=== PATIENT | male | born 1960 | race African-American/Black ===

== ENCOUNTER 2016-12-19 10:11 | Inpatient (IN) | payer OTHER, MEDICARE ==
[2016-12-19] MEDS ORDERED: DEXAMETHASONE 4 MG TABLET PO PRN (10:44)
[2016-12-19] MEDS ORDERED: RITUXIMAB IV PRN ×3 (11:00→12:00)
[2016-12-19] MEDS ORDERED: NORMAL SALINE IV PRN ×3 (11:00→12:00)
[2016-12-19 11:36] LABS: HEMATOCRIT 16.8 % (37.9-51.0); MEAN CORPUSCULAR HEMOGLOBIN 30.5 pg (27.0-33.4); MEAN CORPUSCULAR HGB CONC 33.5 g/dL (32.0-36.0); MEAN CORPUSCULAR VOLUME 91 fl (80-97); RED BLOOD COUNT 1.85 10^6/uL (4.35-5.55); RED CELL DISTRIBUTION WIDTH 23.1 % (11.5-14.0)
[2016-12-19 12:01] LABS: HEMOGLOBIN 5.6 g/dL (13.5-17.0)
[2016-12-19] MEDS: ACETAMINOPHEN 325 MG TABLET PO PRN ×2 (13:20→14:09)
[2016-12-19] MEDS: DIPHENHYDRAMINE HCL 50 MG/ML VIAL IV PRN ×2 (13:20→14:08)
--- NOTE | 2016-12-19 16:09 | XCELERA REPORT ---
[address] [address] Lower Extremity Venous Evaluation Name: LUC VICENTE Age: 56 yrs Gender: Male : 1960 Patient Status: Inpatient Patient Location: [id number] Study Date: 12/19/2016 01:50 PM Procedure: Color flow and duplex imaging bilaterally of the veins of the lower extremities as well as the Common Femoral veins. Reason For Study: SWELLING Ordering Physician: MCKENZIE GRACIA Performed By: Karishma Benedict Right Sided Venous Evaluation Difficult to visualize Femoral area due to large lymph nodes. Normal vessel filling wall to wall, compression and augmentation as well as Colour flow down to the infrageniculate veins. Left Sided Venous Evaluation Normal vessel filling wall to wall, compression and augmentation as well as Colour flow down to the infrageniculate veins. Interpretation Summary No duplex evidence of DVT or obstruction in the bilateral lower extremities. : MCKENZIE GRACIA > Russ Rosario
[2016-12-19] MEDS ORDERED: DIPHENHYDRAMINE HCL 50 MG/ML VIAL ONE (16:36)
[2016-12-19] MEDS ORDERED: FUROSEMIDE INJ/PF 20 MG/2 ML SDV ONE (16:59)
[2016-12-19] MEDS ORDERED: DEXAMETHASONE SOD PHOS INJ 10 MG/1 ML VIAL IV ONE (17:00)
[2016-12-19 18:16] LABS: WHITE BLOOD COUNT 3.9 10^3/uL (4.0-10.5)
[2016-12-19 18:32] LABS: HEMATOCRIT 23.9 % (37.9-51.0); HGB HCT DIFFERENCE 0.4; MEAN CORPUSCULAR HEMOGLOBIN 30.3 pg (27.0-33.4); MEAN CORPUSCULAR HGB CONC 33.6 g/dL (32.0-36.0); MEAN CORPUSCULAR VOLUME 90 fl (80-97); RED BLOOD COUNT 2.66 10^6/uL (4.35-5.55)
[2016-12-19 19:03] LABS: HEMOGLOBIN 8.1 g/dL (13.5-17.0)
--- NOTE | 2016-12-19 19:27 | PDOC H&P ---
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 Sun for admission due to severe anemia, fever, thrombocytopenia and persistent fatigue. Patient had bone marrow biopsy done by Dr Sun earlier today. There was concern due to his persistent fever, which has been related to his Lymphoma, generalized fatigue, bilateral leg swelling and exertional difficulty with breathing. Past Medical History Malignancy Medical History: Reports: Lymphoma GI Medical History: Reports: Other - Cholelithiasis Psychiatric Medical History: Reports: Depression Infectious Medical History: Reports: HIV, Other - HSV infection, Latent Lung TB Past Surgical History Past Surgical History: Reports: None Social History Smoking Status: Never Smoker Frequency of Alcohol Use: None Hx Recreational Drug Use: No Drugs: None Hx Prescription Drug Abuse: No Family History Parental Family History Reviewed: Yes Children Family History Reviewed: Yes Sibling(s) Family History Reviewed.: Yes Medication/Allergy Allergies/Adverse Reactions: No Known Allergies Allergy (Unverified 12/19/16 11:15) Review of Systems Constitutional: PRESENT: fatigue, fever(s), weakness. ABSENT: as per HPI, anorexia, chills, headache(s), night sweats, weight gain, weight loss, other Eyes: PRESENT: visual disturbances Ears: PRESENT: hearing changes Nose, Mouth, and Throat: PRESENT: sore throat. ABSENT: as per HPI, headache(s) , mouth pain, vertigo, other Cardiovascular: PRESENT: dyspnea on exertion, edema. ABSENT: as per HPI, chest pain, orthropnea, palpitations, other Respiratory: PRESENT: cough, dyspnea - with exertion, sputum - minimal Gastrointestinal: ABSENT: abdominal pain, constipation, diarrhea, hematemesis, hematochezia, nausea, vomiting Genitourinary: ABSENT: dysuria, hematuria Musculoskeletal: ABSENT: joint swelling Integumentary: ABSENT: rash, wounds Neurological: PRESENT: weakness - generalized. ABSENT: as per HPI, abnormal gait, abnormal movements, abnormal speech, confusion, convulsions, dizziness, focal weakness, frequent falls, lack of coordination, memory loss, numbness, paresthesias, restless legs, syncope, tingling, tremor(s), vertigo, other Psychiatric: ABSENT: anxiety, depression, homidical ideation, suicidal ideation Endocrine: ABSENT: cold intolerance, heat intolerance, menstrual abnormalities, polydipsia, polyuria Hematologic/Lymphatic: PRESENT: lymphadenopathy. ABSENT: as per HPI, easy bleeding, easy bruising, other Allergic/Immunologic: PRESENT: seasonal rhinorrhea Physical Exam Vital Signs: Temp Pulse Resp BP Pulse Ox 98.4 F 134 H 18 115/44 L 100 12/19/16 17:49 12/19/16 17:49 12/19/16 17:49 12/19/16 17:49 12/19/16 17:49 Intake & Output 12/18/16 12/19/16 12/20/16 06:59 06:59 06:59 Intake Total 900 Balance 900 Weight 88.18 kg General appearance: PRESENT: no acute distress, cooperative Head exam: PRESENT: atraumatic, normocephalic Eye exam: PRESENT: conjunctiva pink, EOMI, PERRLA. ABSENT: scleral icterus Ear exam: PRESENT: normal external ear exam Mouth exam: PRESENT: moist, tongue midline Teeth exam: ABSENT: dental caries, dental tenderness, edentulous, poor dentation , other Throat exam: ABSENT: post pharyngeal erythema, tonsillar erythema, tonsillar exudate, tonsillogmegaly, other Neck exam: PRESENT: lymphadenopathy - spotty in supraclavicular fossa Respiratory exam: PRESENT: clear to auscultation kulwant Cardiovascular exam: PRESENT: RRR. ABSENT: diastolic murmur, rubs, systolic murmur Vascular exam: PRESENT: normal capillary refill GI/Abdominal exam: PRESENT: normal bowel sounds, soft. ABSENT: distended, guarding, mass, organolmegaly, rebound, tenderness Rectal exam: PRESENT: deferred Extremities exam: PRESENT: pedal edema - bilateral, reported ongoing for aboput 1 month (since 11/20/16) Musculoskeletal exam: ABSENT: ambulatory, deformity, dislocation, full ROM, normal inspection, tenderness, other Neurological exam: PRESENT: alert, awake, oriented to person, oriented to place , oriented to time, oriented to situation, CN II-XII grossly intact. ABSENT: motor sensory deficit Psychiatric exam: PRESENT: appropriate affect, normal mood. ABSENT: homicidal ideation, suicidal ideation Skin exam: PRESENT: dry, intact, warm. ABSENT: cyanosis, rash Results Laboratory Results: 12/19/16 12/19/16 11:22 11:22 WBC 4.0 RBC 1.85 L Hgb 5.6 L Hct 16.8 L MCV 91 MCH 30.5 MCHC 33.5 RDW 23.1 H Plt Count 30 L* Blood Type A NEGATIVE Antibody Screen NEGATIVE Assessment & Plan - Diagnosis (1) Diffuse large B cell lymphoma Qualifiers: Lymphoma site: unspecified region Qualified Code(s): C83.30 - Diffuse large B-cell lymphoma, unspecified site Is this a current diagnosis for this admission?: YesPlan: See admitting physician orders. (2) Fever of unknown origin with HIV infection Is this a current diagnosis for this admission?: YesPlan: See admitting physician orders. (3) Pancytopenia Is this a current diagnosis for this admission?: YesPlan: See admitting physician orders. (4) Splenomegaly with HIV infection Is this a current diagnosis for this admission?: YesPlan: See admitting physician orders. (5) HIV (human immunodeficiency virus infection) Is this a current diagnosis for this admission?: YesPlan: See admitting physician orders. (6) HSV (herpes simplex virus) infection Is this a current diagnosis for this admission?: YesPlan: See admitting physician orders. (7) TB lung, latent Is this a current diagnosis for this admission?: YesPlan: See admitting physician orders. (8) Cholelithiasis Qualifiers: Biliary obstruction: without biliary obstruction Is this a current diagnosis for this admission?: YesPlan: See admitting physician orders. - Time Time Spent: 50 to 70 Minutes Medications reviewed and adjusted accordingly: Yes Anticipated discharge: Home with Homehealth Within: Other - Inpatient Certification Medical Necessity: Need Close Monitoring Due to Risk of Patient Decompensation, Risk of Complication if Not Cared For in Hospital, Other - Severe anemia with thrombocytopenia - Plan Summary Plan Summary: See admitting physician orders.
[2016-12-19 19:43] LABS: ALANINE AMINOTRANSFERASE 104 U/L (21-72); ALKALINE PHOSPHATASE 511 U/L (38-126); ANION GAP 13 (5-19); ASPARTATE AMINO TRANSFERASE 160 U/L (17-59); BILIRUBIN,TOTAL 3.9 mg/dL (0.2-1.3); BLOOD UREA NITROGEN 16 mg/dL (7-20); CALCIUM 7.5 mg/dL (8.4-10.2); CARBON DIOXIDE 24 mmol/L (22-30); CHLORIDE 97 mmol/L (98-107); CREATININE RESULT 1.12 mg/dL (0.52-1.25); GLUCOSE 118 mg/dL (75-110); POTASSIUM 4.4 mmol/L (3.6-5.0); SODIUM 133.6 mmol/L (137-145); TOTAL PROTEIN 6.4 g/dL (6.3-8.2)
[2016-12-19 19:55] LABS: BAND NEUTROPHILS % (MANUAL) 4 % (3-5); BASOPHILS % (MANUAL) 0 % (0-2); EOSINOPHILS % (MANUAL) 1 % (0-6); LYMPHOCYTES % (MANUAL) 18 % (13-45); TOTAL CELLS COUNTED 100
[2016-12-19 19:57] LABS: ANISOCYTOSIS 2+; HYPOCHROMASIA SLIGHT; POLYCHROMASIA 1+; TOXIC GRANULATION SLIGHT; TOXIC VACUOLATION PRESENT
[2016-12-19 20:55] LABS: PROTHROMBIN TIME 15.3 SEC (11.4-15.4)
[2016-12-19 20:56] LABS: PARTIAL THROMBOPLASTIN TIME 37.1 SEC (23.5-35.8)
[2016-12-20] MEDS: LANSOPRAZOLE 30 MG TAB.RAP.DR PO SCH (06:04)
[2016-12-20 06:35] LABS: ABSOLUTE EOSINOPHILS # (AUTO) 0.1 10^3/uL (0.0-0.6); ABSOLUTE LYMPHOCYTES (AUTO) 0.6 10^3/uL (0.5-4.7); ABSOLUTE MONOCYTES (AUTO) 0.1 10^3/uL (0.1-1.4); ABSOLUTE NEUT (AUTO) 2.5 10^3/uL (1.7-8.2); BASOPHILS % (AUTO) 0.5 % (0-2); HEMATOCRIT 21.2 % (37.9-51.0); HGB HCT DIFFERENCE 0.1; LYMPHOCYTES % (AUTO) 18.4 % (13-45); MEAN CORPUSCULAR HEMOGLOBIN 29.9 pg (27.0-33.4); MEAN CORPUSCULAR HGB CONC 33.4 g/dL (32.0-36.0); MEAN CORPUSCULAR VOLUME 89 fl (80-97); MONOCYTES % (AUTO) 3.6 % (3-13); RED BLOOD COUNT 2.37 10^6/uL (4.35-5.55); RED CELL DISTRIBUTION WIDTH 20.9 % (11.5-14.0); SEGMENTED NEUTROPHILS % (AUTO) 75.5 % (42-78); WHITE BLOOD COUNT 3.3 10^3/uL (4.0-10.5)
[2016-12-20 07:10] LABS: HEMOGLOBIN 7.1 g/dL (13.5-17.0)
--- NOTE | 2016-12-20 10:23 | RADIOLOGY REPORT (SQ) ---
EXAM DESCRIPTION: NM MUGA REST COMPLETED DATE/TIME: 12/20/2016 10:13 am REASON FOR STUDY: R/O HEART FAILURE COMPARISON: None. RADIONUCLIDE AND DOSE: 25.1 mCi of technetium PYP The route of agent administration: Intravenous TECHNIQUE: Following administration of the radionuclide, gated images of the heart are obtained in t hree projections. Left ventricular functional analysis performed. LIMITATIONS: None. FINDINGS: LEFT VENTRICULAR FUNCTION: EJECTION FRACTION: 60%. END-DIASTOLIC VOLUME: 78 cc. END-SYSTOLIC VOLUME: 30 cc. WALL MOTION: No focal wall motion abnormalities. OTHER: No other significant finding. IMPRESSION: NORMAL CARDIAC MUGA STUDY. NORMAL LEFT VENTRICULAR FUNCTION WITH VALUES ABOVE. TECHNICAL DOCUMENTATION: JOB ID: [id number] [employer]- All Rights Reserved
[2016-12-20 11:29] LABS: PATH REVIEW PATHOLOGIST REVIEWED
[2016-12-20] MEDS ORDERED: FUROSEMIDE INJ/PF 20 MG/2 ML SDV IV PRN (12:31)
[2016-12-20] MEDS ORDERED: ACETAMINOPHEN 325 MG TABLET PO PRN (12:34)
[2016-12-20] MEDS ORDERED: ALLOPURINOL 300 MG TABLET PO ONE (18:30)
--- NOTE | 2016-12-20 18:31 | PDOC PROGRESS REPORT ---
Subjective Progress Note for:: 12/20/16 Subjective:: Patient denied any chest pain or difficulty with breathing. So far no significant fever today. No nausea, vomiting,, abdominal pain or diarrhea. No abnormal bleeding. Physical Exam Vital Signs: Temp Pulse Resp BP Pulse Ox 98.1 F 100 16 114/62 99 12/20/16 17:44 12/20/16 17:44 12/20/16 17:44 12/20/16 17:44 12/20/16 17:44 Intake & Output 12/19/16 12/20/16 12/21/16 06:59 06:59 06:59 Intake Total 2577 645 Balance 2577 645 Weight 88.18 kg General appearance: PRESENT: no acute distress, cooperative Head exam: PRESENT: atraumatic, normocephalic Eye exam: PRESENT: conjunctiva pink, EOMI, PERRLA. ABSENT: scleral icterus Mouth exam: PRESENT: moist, tongue midline Neck exam: PRESENT: lymphadenopathy - scattered palpable adenopathy Respiratory exam: PRESENT: clear to auscultation kulwant Cardiovascular exam: PRESENT: RRR. ABSENT: diastolic murmur, rubs, systolic murmur GI/Abdominal exam: PRESENT: normal bowel sounds, soft. ABSENT: distended, guarding, mass, organolmegaly, rebound, tenderness Extremities exam: PRESENT: pedal edema Musculoskeletal exam: PRESENT: normal inspection Neurological exam: PRESENT: alert, awake, oriented to person, oriented to place , oriented to time, oriented to situation, CN II-XII grossly intact. ABSENT: motor sensory deficit Psychiatric exam: PRESENT: appropriate affect, normal mood. ABSENT: homicidal ideation, suicidal ideation Results Laboratory Results: 12/20/16 05:46 12/19/16 17:55 12/19/16 12/19/16 12/19/16 11:22 11:22 17:55 WBC 4.0 3.9 L RBC 1.85 L 2.66 L Hgb 5.6 L 8.1 L D Hct 16.8 L 23.9 L MCV 91 90 MCH 30.5 30.3 MCHC 33.5 33.6 RDW 23.1 H 20.0 H Plt Count 30 L* 13 L* D Seg Neutrophils % Not Reportable Lymphocytes % Not Reportable Monocytes % Not Reportable Eosinophils % Not Reportable Basophils % Not Reportable Absolute Neutrophils Not Reportable Absolute Lymphocytes Not Reportable Absolute Monocytes Not Reportable Absolute Eosinophils Not Reportable Absolute Basophils Not Reportable Sodium Potassium Chloride Carbon Dioxide Anion Gap BUN Creatinine Est GFR ( Amer) Est GFR (Non-Af Amer) Glucose Calcium Total Bilirubin AST ALT Alkaline Phosphatase Total Protein Albumin Blood Type A NEGATIVE Antibody Screen NEGATIVE 12/19/16 12/20/16 17:55 05:46 WBC 3.3 L RBC 2.37 L Hgb 7.1 L Hct 21.2 L MCV 89 MCH 29.9 MCHC 33.4 RDW 20.9 H Plt Count 17 L* Seg Neutrophils % 75.5 Lymphocytes % 18.4 Monocytes % 3.6 Eosinophils % 2.0 Basophils % 0.5 Absolute Neutrophils 2.5 Absolute Lymphocytes 0.6 Absolute Monocytes 0.1 Absolute Eosinophils 0.1 Absolute Basophils 0.0 Sodium 133.6 L Potassium 4.4 Chloride 97 L Carbon Dioxide 24 Anion Gap 13 BUN 16 Creatinine 1.12 Est GFR ( Amer) > 60 Est GFR (Non-Af Amer) > 60 Glucose 118 H Calcium 7.5 L Total Bilirubin 3.9 H AST 160 H ALT 104 H Alkaline Phosphatase 511 H Total Protein 6.4 Albumin 3.0 L Blood Type Antibody Screen Impressions: MUGA 12/20/16 11:00 IMPRESSION: NORMAL CARDIAC MUGA STUDY. NORMAL LEFT VENTRICULAR FUNCTION WITH VALUES ABOVE. Assessment & Plan - Diagnosis (1) Diffuse large B cell lymphoma Qualifiers: Lymphoma site: unspecified region Qualified Code(s): C83.30 - Diffuse large B-cell lymphoma, unspecified site Is this a current diagnosis for this admission?: Yes (2) Fever of unknown origin with HIV infection Is this a current diagnosis for this admission?: Yes (3) Pancytopenia Is this a current diagnosis for this admission?: Yes (4) Splenomegaly with HIV infection Is this a current diagnosis for this admission?: Yes (5) HIV (human immunodeficiency virus infection) Is this a current diagnosis for this admission?: Yes (6) HSV (herpes simplex virus) infection Is this a current diagnosis for this admission?: Yes (7) TB lung, latent Is this a current diagnosis for this admission?: Yes (8) Cholelithiasis Qualifiers: Biliary obstruction: without biliary obstruction Is this a current diagnosis for this admission?: Yes - Time Time Spent with patient: 25-34 minutes Medications reviewed and adjusted accordingly: Yes Anticipated discharge: Home with Homehealth Within: Other - Inpatient Certification Based on my medical assessment, after consideration of the patient's comorbidities, presenting symptoms, or acuity I expect that the services needed warrant INPATIENT care.: Yes I certify that my determination is in accordance with my understanding of Medicare's requirements for reasonable and necessary INPATIENT services [42 CFR 412.3e].: Yes Medical Necessity: Need Close Monitoring Due to Risk of Patient Decompensation, Risk of Complication if Not Cared For in Hospital Post Hospital Care: D/C Nursing Staff Development Coordinator Documentation - Plan Summary Plan Summary: Patient will receive 2 units PRBC. If platelet remain < 20,000 post transfusion will consider platelet transfusion in view of his splenomegaly and HIV status in the absence of active bleeding. Continue all other current medication management. I will start on Beneprotein 1 packet with meals tid. I reviewed and discussed his MUGA scan findings with LVEF at 60 %.
[2016-12-20 21:23] LABS: ABSOLUTE EOSINOPHILS # (AUTO) 0.1 10^3/uL (0.0-0.6); ABSOLUTE LYMPHOCYTES (AUTO) 0.5 10^3/uL (0.5-4.7); ABSOLUTE MONOCYTES (AUTO) 0.1 10^3/uL (0.1-1.4); ABSOLUTE NEUT (AUTO) 2.5 10^3/uL (1.7-8.2); BASOPHILS % (AUTO) 0.4 % (0-2); EOSINOPHILS % (AUTO) 3.1 % (0-6); HEMATOCRIT 29.8 % (37.9-51.0); HGB HCT DIFFERENCE -0.1; LYMPHOCYTES % (AUTO) 15.5 % (13-45); MEAN CORPUSCULAR HEMOGLOBIN 29.6 pg (27.0-33.4); MEAN CORPUSCULAR HGB CONC 33.1 g/dL (32.0-36.0); MEAN CORPUSCULAR VOLUME 90 fl (80-97); MONOCYTES % (AUTO) 2.6 % (3-13); RED BLOOD COUNT 3.33 10^6/uL (4.35-5.55); RED CELL DISTRIBUTION WIDTH 20.1 % (11.5-14.0); SEGMENTED NEUTROPHILS % (AUTO) 78.4 % (42-78); WHITE BLOOD COUNT 3.2 10^3/uL (4.0-10.5)
[2016-12-20 21:47] LABS: HEMOGLOBIN 9.9 g/dL (13.5-17.0)
[2016-12-21] MEDS: LANSOPRAZOLE 30 MG TAB.RAP.DR PO SCH (05:25)
[2016-12-21 06:38] LABS: ABSOLUTE EOSINOPHILS # (AUTO) 0.2 10^3/uL (0.0-0.6); ABSOLUTE MONOCYTES (AUTO) 0.1 10^3/uL (0.1-1.4); ABSOLUTE NEUT (AUTO) 2.1 10^3/uL (1.7-8.2); BASOPHILS % (AUTO) 0.4 % (0-2); EOSINOPHILS % (AUTO) 6.8 % (0-6); HEMATOCRIT 22.7 % (37.9-51.0); HGB HCT DIFFERENCE 0.1; LYMPHOCYTES % (AUTO) 29.2 % (13-45); MEAN CORPUSCULAR HEMOGLOBIN 29.6 pg (27.0-33.4); MEAN CORPUSCULAR HGB CONC 33.5 g/dL (32.0-36.0); MEAN CORPUSCULAR VOLUME 89 fl (80-97); MONOCYTES % (AUTO) 2.3 % (3-13); RED BLOOD COUNT 2.57 10^6/uL (4.35-5.55); RED CELL DISTRIBUTION WIDTH 20.4 % (11.5-14.0); SEGMENTED NEUTROPHILS % (AUTO) 61.3 % (42-78); WHITE BLOOD COUNT 3.5 10^3/uL (4.0-10.5)
[2016-12-21] MEDS ORDERED: ACETAMINOPHEN 325 MG TABLET PO PRN (06:58)
[2016-12-21 07:02] LABS: HEMOGLOBIN 7.6 g/dL (13.5-17.0)
--- NOTE | 2016-12-21 08:50 | PDOC PROGRESS REPORT ---
Subjective Progress Note for:: 12/21/16 Subjective:: Patient denied any profuse rectal bleeding, black or tarry stool. He did admit to sore around his rectum that leaves some bloody stain on his toilet paper with bowel movement. He denied any chest pain or difficulty with breathing. His reported fever has improved with administration of Tylenol. No nausea, vomiting, , abdominal pain or diarrhea. Physical Exam Vital Signs: Temp Pulse Resp BP Pulse Ox 100.3 F 121 H 19 105/50 L 100 12/21/16 08:00 12/21/16 08:00 12/21/16 08:00 12/21/16 08:00 12/21/16 08:00 Intake & Output 12/20/16 12/21/16 12/22/16 06:59 06:59 06:59 Intake Total 2577 2267 Balance 2577 2267 Weight 88.18 kg 88.3 kg Physical Exam: General appearance: PRESENT: no acute distress, cooperative Head exam: PRESENT: atraumatic, normocephalic Eye exam: PRESENT: conjunctiva pink, EOMI, PERRLA. ABSENT: scleral icterus Mouth exam: PRESENT: moist, tongue midline Neck exam: PRESENT: lymphadenopathy - scattered palpable adenopathy Respiratory exam: PRESENT: clear to auscultation kulwant Cardiovascular exam: PRESENT: RRR. ABSENT: diastolic murmur, rubs, systolic murmur GI/Abdominal exam: PRESENT: normal bowel sounds, soft. ABSENT: distended, guarding, mass, organomegaly, rebound, tenderness RECTAL: Deferred to GI international travel consultant evaluation in view of his thrombocytopenia. Extremities exam: PRESENT: pedal edema Musculoskeletal exam: PRESENT: normal inspection Neurological exam: PRESENT: alert, awake, oriented to person, oriented to place , oriented to time, oriented to situation, CN II-XII grossly intact. ABSENT: motor sensory deficit Psychiatric exam: PRESENT: appropriate affect, normal mood. ABSENT: homicidal ideation, suicidal ideation Results Laboratory Results: 12/21/16 05:03 12/19/16 17:55 12/19/16 12/19/16 12/20/16 11:22 11:22 20:55 WBC 4.0 3.2 L RBC 1.85 L 3.33 L Hgb 5.6 L 9.9 L D Hct 16.8 L 29.8 L MCV 91 90 MCH 30.5 29.6 MCHC 33.5 33.1 RDW 23.1 H 20.1 H Plt Count 30 L* 16 L* Seg Neutrophils % 78.4 H Lymphocytes % 15.5 Monocytes % 2.6 L Eosinophils % 3.1 Basophils % 0.4 Absolute Neutrophils 2.5 Absolute Lymphocytes 0.5 Absolute Monocytes 0.1 Absolute Eosinophils 0.1 Absolute Basophils 0.0 Blood Type A NEGATIVE Antibody Screen NEGATIVE 12/21/16 05:03 WBC 3.5 L RBC 2.57 L Hgb 7.6 L D Hct 22.7 L MCV 89 MCH 29.6 MCHC 33.5 RDW 20.4 H Plt Count 32 L Seg Neutrophils % 61.3 Lymphocytes % 29.2 Monocytes % 2.3 L Eosinophils % 6.8 H Basophils % 0.4 Absolute Neutrophils 2.1 Absolute Lymphocytes 1.0 Absolute Monocytes 0.1 Absolute Eosinophils 0.2 Absolute Basophils 0.0 Blood Type Antibody Screen Impressions: MUGA 12/20/16 11:00 IMPRESSION: NORMAL CARDIAC MUGA STUDY. NORMAL LEFT VENTRICULAR FUNCTION WITH VALUES ABOVE. Assessment & Plan - Diagnosis (1) Diffuse large B cell lymphoma Qualifiers: Lymphoma site: unspecified region Qualified Code(s): C83.30 - Diffuse large B-cell lymphoma, unspecified site Is this a current diagnosis for this admission?: Yes (2) Fever of unknown origin with HIV infection Is this a current diagnosis for this admission?: Yes (3) Pancytopenia Is this a current diagnosis for this admission?: Yes (4) Splenomegaly with HIV infection Is this a current diagnosis for this admission?: Yes (5) HIV (human immunodeficiency virus infection) Is this a current diagnosis for this admission?: Yes (6) HSV (herpes simplex virus) infection Is this a current diagnosis for this admission?: Yes (7) TB lung, latent Is this a current diagnosis for this admission?: Yes (8) Cholelithiasis Qualifiers: Biliary obstruction: without biliary obstruction Is this a current diagnosis for this admission?: Yes - Time Time Spent with patient: 25-34 minutes Medications reviewed and adjusted accordingly: Yes Anticipated discharge: Home with Homehealth Within: Other - Inpatient Certification Based on my medical assessment, after consideration of the patient's comorbidities, presenting symptoms, or acuity I expect that the services needed warrant INPATIENT care.: Yes I certify that my determination is in accordance with my understanding of Medicare's requirements for reasonable and necessary INPATIENT services [42 CFR 412.3e].: Yes Medical Necessity: Need Close Monitoring Due to Risk of Patient Decompensation, Need For IV Fluids, Risk of Complication if Not Cared For in Hospital Post Hospital Care: D/C Director Of Bands Documentation - Plan Summary Plan Summary: See attending physician orders.
[2016-12-21] MEDS: ALLOPURINOL 300 MG TABLET PO SCH (09:12)
[2016-12-21] MEDS ORDERED: FOSAPREPITANT DIMEGLUMINE 150 MG in NORMAL SALINE 150 ML IV PRN (09:40)
[2016-12-21] MEDS ORDERED: ONDANSETRON HCL/PF 16 MG, DEXAMETHASONE SOD PHOSPHATE 20 MG in NORMAL SALINE 50 ML IV PRN (09:40)
[2016-12-21] MEDS ORDERED: CYCLOPHOSPHAMIDE IV PRN (09:42)
[2016-12-21] MEDS ORDERED: NORMAL SALINE IV PRN (09:42)
[2016-12-21] MEDS ORDERED: DISPOSABLE IV PRN ×2 (09:44→09:45)
[2016-12-21] MEDS ORDERED: DOXORUBICIN HCL IV PRN (09:44)
[2016-12-21] MEDS ORDERED: VINCRISTINE SULFATE IV PRN (09:45)
[2016-12-21] MEDS ORDERED: DOLUTEGRAVIR PO SCH (10:00)
[2016-12-21] MEDS ORDERED: LAMIVUDI PO SCH (10:00)
[2016-12-21] MEDS ORDERED: ABACAVIR PO SCH (10:00)
[2016-12-21] MEDS ORDERED: FAMCICLOVIR 500 MG PO SCH ×2 (10:00→22:00)
[2016-12-21] MEDS ORDERED: TENOFOVIR DISOPROXIL FUMARATE 300 MG PO SCH (10:00)
[2016-12-21] MEDS ORDERED: EPOETIN ALFA INJ 40000 UNIT/1 ML (ONCOLOGY) SUBCUT PRN (10:52)
[2016-12-21] MEDS ORDERED: PREDNISONE 20 MG TABLET PO PRN (10:56)
[2016-12-21] MEDS ORDERED: LORAZEPAM 1 MG TABLET PO PRN (11:00)
[2016-12-21] MEDS ORDERED: PROCHLORPERAZINE MALEATE 10 MG TABLET PO PRN (11:00)
[2016-12-21] MEDS ORDERED: FAMCICLOVIR 500 MG PO ONE (11:30)
[2016-12-21] MEDS ORDERED: TRIUMEQ PO ONE (11:30)
[2016-12-21] MEDS ORDERED: TENOFOVIR 300MG TABLET PO ONE (11:30)
--- NOTE | 2016-12-21 11:31 | Physician Advisory Note ---
Physician Advisor ProgressNote .: Pursuant to the plan for [facility], I have reviewed the medical record for this patient. Physician Advisor Statement: Please consider documentin. "pancytopenia, likely due to " (chemo? large B cell lymphoma?) 2. HIV: is there AIDS? 3. site(s) of B cell lymphoma 4. "Acute hyponatemia, likely due to " 5. Fever: is it "due to lymphoma", or is it "Suspected bacteria infxn of unknown etiology"? 6. reason for elevated LFTs Thanks! CK
[2016-12-21] MEDS ORDERED: NORMAL SALINE 250 ML IV PRN (12:00)
[2016-12-21] MEDS: ONDANSETRON HCL 8 MG TABLET PO SCH ×2 (17:37→22:15)
[2016-12-21 17:43] LABS: ABSOLUTE EOSINOPHILS # (AUTO) 0.1 10^3/uL (0.0-0.6); ABSOLUTE LYMPHOCYTES (AUTO) 0.7 10^3/uL (0.5-4.7); ABSOLUTE MONOCYTES (AUTO) 0.1 10^3/uL (0.1-1.4); ABSOLUTE NEUT (AUTO) 2.4 10^3/uL (1.7-8.2); BASOPHILS % (AUTO) 1.2 % (0-2); EOSINOPHILS % (AUTO) 3.4 % (0-6); HEMATOCRIT 24.2 % (37.9-51.0); HEMOGLOBIN 8.3 g/dL (13.5-17.0); HGB HCT DIFFERENCE 0.7; LYMPHOCYTES % (AUTO) 20.7 % (13-45); MEAN CORPUSCULAR HEMOGLOBIN 30.3 pg (27.0-33.4); MEAN CORPUSCULAR HGB CONC 34.2 g/dL (32.0-36.0); MEAN CORPUSCULAR VOLUME 89 fl (80-97); RED BLOOD COUNT 2.73 10^6/uL (4.35-5.55); RED CELL DISTRIBUTION WIDTH 20.2 % (11.5-14.0); SEGMENTED NEUTROPHILS % (AUTO) 72.7 % (42-78); WHITE BLOOD COUNT 3.3 10^3/uL (4.0-10.5)
[2016-12-22] MEDS ORDERED: ACETAMINOPHEN 325 MG TABLET PO PRN (05:00)
[2016-12-22] MEDS ORDERED: DIPHENHYDRAMINE HCL 25 MG CAPSULE PO PRN (05:00)
[2016-12-22] MEDS: LANSOPRAZOLE 30 MG TAB.RAP.DR PO SCH (05:57)
[2016-12-22] MEDS: ONDANSETRON HCL 8 MG TABLET PO SCH ×3 (05:57→21:29)
[2016-12-22 07:12] LABS: HEMATOCRIT 23.7 % (37.9-51.0); MEAN CORPUSCULAR HEMOGLOBIN 29.3 pg (27.0-33.4); MEAN CORPUSCULAR HGB CONC 33.1 g/dL (32.0-36.0); MEAN CORPUSCULAR VOLUME 88 fl (80-97); RED BLOOD COUNT 2.69 10^6/uL (4.35-5.55); RED CELL DISTRIBUTION WIDTH 20.5 % (11.5-14.0)
[2016-12-22 07:26] LABS: ALANINE AMINOTRANSFERASE 50 U/L (21-72); ALBUMIN 2.5 g/dL (3.5-5.0); ALKALINE PHOSPHATASE 287 U/L (38-126); ANION GAP 9 (5-19); ASPARTATE AMINO TRANSFERASE 37 U/L (17-59); BILIRUBIN,DIRECT 1.4 mg/dL (0.0-0.4); BILIRUBIN,TOTAL 2.4 mg/dL (0.2-1.3); BLOOD UREA NITROGEN 21 mg/dL (7-20); CALCIUM 7.6 mg/dL (8.4-10.2); CARBON DIOXIDE 25 mmol/L (22-30); CHLORIDE 98 mmol/L (98-107); CREATININE RESULT 0.73 mg/dL (0.52-1.25); GLUCOSE 127 mg/dL (75-110); POTASSIUM 4.5 mmol/L (3.6-5.0); SODIUM 131.7 mmol/L (137-145); TOTAL PROTEIN 5.4 g/dL (6.3-8.2)
[2016-12-22 07:46] LABS: BASOPHILS % (MANUAL) 0 % (0-2); EOSINOPHILS % (MANUAL) 0 % (0-6); LYMPHOCYTES % (MANUAL) 16 % (13-45); NUCLEATED RED BLOOD CELLS 2 /100 WBC (0); TOTAL CELLS COUNTED 50
[2016-12-22 07:48] LABS: TOXIC GRANULATION 1+
[2016-12-22 07:49] LABS: ANISOCYTOSIS 2+; OVALOCYTES 1+; POIKILOCYTOSIS 1+; POLYCHROMASIA SLIGHT; TEAR DROP CELLS SLIGHT; WHITE BLOOD COUNT 1.8 10^3/uL (4.0-10.5)
[2016-12-22 07:54] LABS: HEMOGLOBIN 7.9 g/dL (13.5-17.0)
[2016-12-22] MEDS ORDERED: TENOFOVIR 300MG TABLET PO SCH ×2 (08:00→10:00)
[2016-12-22] MEDS ORDERED: TRIUMEQ PO SCH ×2 (08:00→10:00)
[2016-12-22] MEDS: FAMCICLOVIR 500 MG PO SCH ×2 (08:34→17:15)
[2016-12-22] MEDS ORDERED: PREDNISONE 20 MG TABLET PO SCH (10:00)
[2016-12-22] MEDS: ALLOPURINOL 300 MG TABLET PO SCH (10:11)
[2016-12-22] MEDS ORDERED: NORMAL SALINE 250 ML IV PRN (11:25)
[2016-12-22] MEDS ORDERED: FUROSEMIDE INJ/PF 20 MG/2 ML SDV IV PRN (11:43)
--- NOTE | 2016-12-22 17:07 | PDOC DISCHARGE SUMMARY ---
General - Admit/Disc Date/PCP Admission Date/Primary Care Provider: 12/19/16 10:11 Discharge Date: 12/22/16 - Discharge Diagnosis (1) Diffuse large B cell lymphoma Is this a current diagnosis for this admission?: Yes (2) Fever of unknown origin with HIV infection Is this a current diagnosis for this admission?: Yes (3) Pancytopenia Is this a current diagnosis for this admission?: Yes (4) Splenomegaly with HIV infection Is this a current diagnosis for this admission?: Yes (5) HIV (human immunodeficiency virus infection) Is this a current diagnosis for this admission?: Yes (6) HSV (herpes simplex virus) infection Is this a current diagnosis for this admission?: Yes (7) TB lung, latent Is this a current diagnosis for this admission?: Yes (8) Cholelithiasis Is this a current diagnosis for this admission?: Yes - Additional Information Home Medications: Abacavir/Dolutegravir/Lamivudi [Triumeq Tablet] 300 mg PO DAILY 12/19/16 Allopurinol [Zyloprim 300 mg Tablet] 300 mg PO DAILY 12/19/16 Famciclovir [Famvir] 500 mg PO BID 12/19/16 Ondansetron HCl [Zofran 8 mg Tablet] 8 mg PO DAILY 12/19/16 Tenofovir Disoproxil Fumarate [Viread 300 mg Tablet] 300 mg PO DAILY 12/19/16 History of Present Illness Patient complains of: Fever, fatigue, severe anemia and thrombocytopenia History of Present Illness: LUC VICENTE is a 56 year old male with history of HIV infection, Latent lung TB and recently diagnosed with diffuse large B cell Lymphoma who was referred to my service by Dr. Sun for admission due to severe anemia, fever, thrombocytopenia and persistent fatigue. Patient had bone marrow biopsy done by Dr Sun earlier today. There was concern due to his persistent fever, which has been related to his Lymphoma, generalized fatigue, bilateral leg swelling and exertional difficulty with breathing. Hospital Course Hospital Course: Patient was managed with chemotherapy administration including Cyclophosphamide , Doxorubicin and Vincristine. He had total of 6 units PRBC and 2 bags of pheresis platelet transfusion. His pancytopenia is most likely due to combination of effects of HIV infection and Lymphoma. Chemotherapy induces state is less likely due to the fact that he is just starting chemotherapy treatment with first dose upon admission. His fever did improved with chemotherapy administration. His abnormal liver enzyme is probably multiifactorial including his HIV infection and lymphoma that might have contributed to liver involvement and pathology, particularly with his significant splenomegaly. Physical Exam Vital Signs: Temp Pulse Resp BP Pulse Ox 97.4 F 96 17 108/58 L 100 12/22/16 16:00 12/22/16 16:00 12/22/16 16:00 12/22/16 16:00 12/22/16 16:00 Intake & Output 12/21/16 12/22/16 12/23/16 06:59 06:59 06:59 Intake Total 2267 2137 0 Balance 2267 2137 0 Weight 88.3 kg Physical Exam: General appearance: PRESENT: no acute distress, cooperative Head exam: PRESENT: atraumatic, normocephalic Eye exam: PRESENT: conjunctiva pink, EOMI, PERRLA. ABSENT: scleral icterus Mouth exam: PRESENT: moist, tongue midline Neck exam: PRESENT: lymphadenopathy - scattered palpable adenopathy Respiratory exam: PRESENT: clear to auscultation kulwant Cardiovascular exam: PRESENT: RRR. ABSENT: diastolic murmur, rubs, systolic murmur GI/Abdominal exam: PRESENT: normal bowel sounds, soft. ABSENT: distended, guarding, mass, organomegaly, rebound, tenderness Extremities exam: PRESENT: pedal edema Musculoskeletal exam: PRESENT: normal inspection Neurological exam: PRESENT: alert, awake, oriented to person, oriented to place , oriented to time, oriented to situation, CN II-XII grossly intact. ABSENT: motor sensory deficit Psychiatric exam: PRESENT: appropriate affect, normal mood. ABSENT: homicidal ideation, suicidal ideation Results Laboratory Results: 12/22/16 06:01 12/22/16 06:01 12/21/16 12/21/16 12/22/16 17:30 19:00 06:01 WBC 3.3 L RBC 2.73 L Hgb 8.3 L Hct 24.2 L MCV 89 MCH 30.3 MCHC 34.2 RDW 20.2 H Plt Count 26 L* Seg Neutrophils % 72.7 Lymphocytes % 20.7 Monocytes % 2.0 L Eosinophils % 3.4 Basophils % 1.2 Absolute Neutrophils 2.4 Absolute Lymphocytes 0.7 Absolute Monocytes 0.1 Absolute Eosinophils 0.1 Absolute Basophils 0.0 Sodium 131.7 L Potassium 4.5 Chloride 98 Carbon Dioxide 25 Anion Gap 9 BUN 21 H Creatinine 0.73 Est GFR ( Amer) > 60 Est GFR (Non-Af Amer) > 60 Glucose 127 H Calcium 7.6 L Total Bilirubin 2.4 H AST 37 ALT 50 Alkaline Phosphatase 287 H Total Protein 5.4 L Albumin 2.5 L Stool Occult Blood NEGATIVE Blood Type Antibody Screen 12/22/16 12/22/16 06:01 12:05 WBC 1.8 L D RBC 2.69 L Hgb 7.9 L Hct 23.7 L MCV 88 MCH 29.3 MCHC 33.1 RDW 20.5 H Plt Count 22 L* Seg Neutrophils % Not Reportable Lymphocytes % Not Reportable Monocytes % Not Reportable Eosinophils % Not Reportable Basophils % Not Reportable Absolute Neutrophils Not Reportable Absolute Lymphocytes Not Reportable Absolute Monocytes Not Reportable Absolute Eosinophils Not Reportable Absolute Basophils Not Reportable Sodium Potassium Chloride Carbon Dioxide Anion Gap BUN Creatinine Est GFR ( Amer) Est GFR (Non-Af Amer) Glucose Calcium Total Bilirubin AST ALT Alkaline Phosphatase Total Protein Albumin Stool Occult Blood Blood Type A NEGATIVE Antibody Screen NEGATIVE Impressions: MUGA 12/20/16 11:00 IMPRESSION: NORMAL CARDIAC MUGA STUDY. NORMAL LEFT VENTRICULAR FUNCTION WITH VALUES ABOVE. Qualifiers PATEINT BEING DISCHARGED WITH ANY OF THE FOLLOWING DIAGNOSIS?: No Plan Discharge Plan: Discharge home after completion of 2nd unit of PRBC transfusion today if post transfusion hemoglobin is above 8gm/dL. He will follow up with Dr. Sun as instructed upon discharge. Time Spent: Greater than 30 Minutes - I spent more that 50% of this 35 minutes visit discussing with patient and spouse rgarding post discharge plan and follow up with Dr Sun. They were instructed to call her office on Sunday for appointment.
[2016-12-22 22:24] LABS: HEMATOCRIT 30.5 % (37.9-51.0); MEAN CORPUSCULAR HEMOGLOBIN 30.6 pg (27.0-33.4); MEAN CORPUSCULAR HGB CONC 34.4 g/dL (32.0-36.0); MEAN CORPUSCULAR VOLUME 89 fl (80-97); RED BLOOD COUNT 3.43 10^6/uL (4.35-5.55); RED CELL DISTRIBUTION WIDTH 19.8 % (11.5-14.0); WHITE BLOOD COUNT 2.3 10^3/uL (4.0-10.5)
[2016-12-22 22:43] LABS: HEMOGLOBIN 10.5 g/dL (13.5-17.0)
[2016-12-22 22:52] VITALS: BP 100/55
[2016-12-22 22:58] LABS: BAND NEUTROPHILS % (MANUAL) 9 % (3-5); BASOPHILS % (MANUAL) 0 % (0-2); EOSINOPHILS % (MANUAL) 0 % (0-6); LYMPHOCYTES % (MANUAL) 7 % (13-45); TOTAL CELLS COUNTED 100
[2016-12-22 23:00] LABS: ANISOCYTOSIS 2+; BURR CELLS 1+; POIKILOCYTOSIS 1+; POLYCHROMASIA SLIGHT; TOXIC GRANULATION 1+; TOXIC VACUOLATION PRESENT
[2016-12-22 23:01] LABS: HELMET CELLS SLIGHT; OVALOCYTES SLIGHT; TARGET CELLS 1+; TEAR DROP CELLS SLIGHT
== END 2016-12-22 23:39 | disposition home or self-care (01) | DRG 975 ==
LOC: 4S 10:11
PROVIDERS: ADMIT Internal Medicine Geriatric Medicine; ATTEND Internal Medicine Geriatric Medicine
PROC: 30233N1 Transfusion of Nonautologous Red Blood Cells into Peripheral Vein, Percutaneous Approach (ICD-10-PCS; principal; 2016-12-19)
PROC: 30233N1 Transfusion of Nonautologous Red Blood Cells into Peripheral Vein, Percutaneous Approach (ICD-10-PCS; 2016-12-20)
PROC: 6A550Z2 Pheresis of Platelets, Single (ICD-10-PCS; 2016-12-20)
PROC: 6A550Z2 Pheresis of Platelets, Single (ICD-10-PCS; 2016-12-21)
PROC: 30233N1 Transfusion of Nonautologous Red Blood Cells into Peripheral Vein, Percutaneous Approach (ICD-10-PCS; 2016-12-22)
DX: C83.30 Diffuse large B-cell lymphoma, unspecified site (principal); B20 Human immunodeficiency virus [HIV] disease; D61.818 Other pancytopenia; D64.9 Anemia, unspecified; R76.11 Nonspecific reaction to tuberculin skin test without active tuberculosis; B00.9 Herpesviral infection, unspecified; K80.20 Calculus of gallbladder without cholecystitis without obstruction; R16.1 Splenomegaly, not elsewhere classified
CPT/HCPCS: 36415; 36430; 78472; 80053; 82272; 85025; 85610; 85730; 86850; 86900; 86901; 86920; 93970; 96367; 96409; 96411; 96413; 96415; A9560; J0885; J1100; J1200; J1453; J1940; J2405; J3490; J7030; J7050; J7512; J9000; J9070; J9310; J9370; P9016; P9035; Q9969; S0119

== ENCOUNTER 2018-05-22 12:20 | Inpatient (IN) | payer OTHER, MEDICARE ==
[2018-05-22] MEDS ORDERED: ACETAMINOPHEN 325 MG TABLET PO PRN (13:45)
[2018-05-22] MEDS: NORMAL SALINE 1000 ML 1,000 ML IV PRN (14:32)
[2018-05-22] MEDS: IMIPENEM/CILASTATIN SODIUM 500 MG in NORMAL SALINE 100 ML IV SCH ×2 (15:58→21:08)
[2018-05-22 17:09] LABS: AMORPHOUS SEDIMENT,URINE TRACE /HPF; APPEARANCE,URINE SLIGHTLY-CLOUDY; BILIRUBIN,URINE NEGATIVE (NEGATIVE); GLUCOSE, URINE NEGATIVE (NEGATIVE); KETONES,URINE NEGATIVE (NEGATIVE); LEUKOCYTE ESTERASE,URINE NEGATIVE (NEGATIVE); NITRITE,URINE NEGATIVE (NEGATIVE); PROTEIN,URINE 100 mg/dL (NEGATIVE); URINE SPECIFIC GRAVITY 1.028
[2018-05-22 17:11] LABS: COLOR,URINE YELLOW
--- NOTE | 2018-05-22 17:19 | RADIOLOGY REPORT (SQ) ---
EXAM DESCRIPTION: Chest one view COMPLETED DATE/TIME: 05/22/2018 REASON FOR STUDY: Fever. Mild chest pain. COMPARISON: None. EXAM PARAMETERS: NUMBER OF VIEWS: One view TECHNIQUE: Single frontal radiograph of the chest. RADIATION DOSE: N/A LIMITATIONS: None. FINDINGS: LUNGS AND PLEURA: No opacities, masses or pneumothorax. No pleural effusion. MEDIASTINUM AND HILAR STRUCTURES: No masses. Contour normal. HEART AND VASCULAR STRUCTURES: Heart normal in size. Normal vasculature. BONES: No acute findings. HARDWARE: PICC line on the left. OTHER: No other significant finding. IMPRESSION: NO SIGNIFICANT RADIOGRAPHIC FINDING IN THE CHEST. TECHNICAL DOCUMENTATION: JOB ID: [id number] [email or web address]- All Rights Reserved Reading location - IP/workstation name: [email or web address]
[2018-05-22] MEDS ORDERED: LORAZEPAM 1 MG TABLET PO PRN (19:31)
[2018-05-22] MEDS ORDERED: VANCOMYCIN HCL 0 MG in DEXTROSE 5%-WATER 250 ML IV NR (19:45)
--- NOTE | 2018-05-22 20:08 | PDOC H&P ---
History of Present Illness Admission Date/PCP: 05/22/18 12:20 MCKENZIE GRACIA MD Patient complains of: Fever, abdominal cramps History of Present Illness: LUC VICENTE is a 57 year old male patient of Dr Gracia who was recently diagnosed with recurrent diffuse large B cell lymphoma in the setting of HIV infection. He was started on R-CHOP therapy. Patient reported for follow up at [facility] today with complaint of fever and evaluation did revealed tem perature of 101.8F. Also, he reported right sided persistent abdominal cramping pain. He denied any significant nausea, vomiting or diarrhea. He denied any dysuria, hematuria, or flank pain. No headache or dizziness. No nasal or sinus congestion. He was treated with IV Rocephin after 2 sets of blood culture specimen were taken. He was advised hospitalization due to concern about possible acute infection in view of his morbidities, ongoing chemotherapy and presenting symptoms. Past Medical History Malignancy Medical History: Reports: Lymphoma Psychiatric Medical History: Reports: Depression Infectious Medical History: Reports: HIV Social History Smoking Status: Never Smoker Frequency of Alcohol Use: None Hx Recreational Drug Use: No Drugs: None Hx Prescription Drug Abuse: No - Advance Directive Resuscitation Status: Full Code Family History Parental Family History Reviewed: Yes Children Family History Reviewed: Yes Sibling(s) Family History Reviewed.: Yes Medication/Allergy Home Medications: Abacavir/Dolutegravir/Lamivudi [Triumeq 600-50-300 mg Tablet] 1 tab PO DAILY 05/22/18 Acyclovir [Acyclovir 400 mg Tablet] 400 mg PO BID 05/22/18 Allopurinol [Zyloprim 300 mg Tablet] 300 mg PO DAILY 05/22/18 Dronabinol [Marinol 2.5 mg Capsule] 2.5 mg PO BIDACBS 05/22/18 Famciclovir [Famvir] 500 mg PO BID 05/22/18 Lorazepam [Ativan 1 mg Tablet] 1 mg PO Q8HP PRN 05/22/18 Omeprazole 20 mg PO BID 05/22/18 Ondansetron HCl [Zofran 8 mg Tablet] 8 mg PO Q12HP PRN 05/22/18 Prednisone [Deltasone 20 mg Tablet] 100 mg PO DAILY 05/22/18 Prochlorperazine Maleate [Compazine 10 mg Tablet] 10 mg PO Q6HP PRN 05/22/18 Tenofovir Disoproxil Fumarate [Viread 300 mg Tablet] 300 mg PO DAILY 05/22/18 Allergies/Adverse Reactions: No Known Allergies Allergy (Unverified 12/19/16 11:15) Review of Systems Constitutional: PRESENT: fever(s), weakness Eyes: ABSENT: visual disturbances Ears: ABSENT: hearing changes Nose, Mouth, and Throat: ABSENT: as per HPI, headache(s), mouth pain, sore throat, vertigo, other Cardiovascular: ABSENT: chest pain, dyspnea on exertion, edema, orthropnea, palpitations Respiratory: PRESENT: cough. ABSENT: as per HPI, dyspnea, hemoptysis, sputum, other Gastrointestinal: PRESENT: abdominal pain. ABSENT: as per HPI, bloating, coffee ground emesis, constipation, diarrhea, dysphagia, heartburn, hematemesis, hematochezia, melena, nausea, vomiting, other Genitourinary: ABSENT: dysuria, hematuria Musculoskeletal: PRESENT: other - Abdominal muscle cramps with pain. ABSENT: back pain Integumentary: ABSENT: rash, wounds Neurological: ABSENT: abnormal gait, abnormal speech, confusion, dizziness, focal weakness, syncope Psychiatric: ABSENT: anxiety, depression, homidical ideation, suicidal ideation Endocrine: ABSENT: cold intolerance, heat intolerance, polydipsia, polyuria Hematologic/Lymphatic: ABSENT: easy bleeding, easy bruising, lymphadenopathy Allergic/Immunologic: ABSENT: seasonal rhinorrhea Physical Exam Vital Signs: Temp Pulse Resp BP Pulse Ox 103.0 F H 164 H 20 115/53 L 100 05/22/18 18:28 05/22/18 18:28 05/22/18 18:28 05/22/18 18:28 05/22/18 18:28 Intake & Output 05/21/18 05/22/18 05/23/18 06:59 06:59 06:59 Intake Total 322 Output Total 200 Balance 122 Weight 94.801 kg General appearance: PRESENT: no acute distress, well-developed, well-nourished Head exam: PRESENT: atraumatic, normocephalic Eye exam: PRESENT: conjunctiva pink, EOMI, PERRLA. ABSENT: scleral icterus Ear exam: PRESENT: normal external ear exam Mouth exam: PRESENT: moist Throat exam: ABSENT: post pharyngeal erythema, tonsillar erythema, tonsillar exudate, tonsillogmegaly, other Neck exam: PRESENT: full ROM. ABSENT: JVD, lymphadenopathy, tenderness, thyromegaly Respiratory exam: PRESENT: clear to auscultation kulwant Cardiovascular exam: PRESENT: +S1, +S2, tachycardia. ABSENT: diastolic murmur, systolic murmur Pulses: PRESENT: +2 pedal pulses bilateral Vascular exam: PRESENT: normal capillary refill. ABSENT: pallor GI/Abdominal exam: PRESENT: distended - slightly, normal bowel sounds, tenderness - right flank muscle spasm with tenderness to palpation. ABSENT: mass, organolmegaly Rectal exam: PRESENT: deferred Extremities exam: PRESENT: pedal edema - 1+ bilaterally Musculoskeletal exam: PRESENT: ambulatory Neurological exam: PRESENT: alert, awake, oriented to person, oriented to place, oriented to time, oriented to situation, CN II-XII grossly intact. ABSENT: motor sensory deficit Psychiatric exam: PRESENT: appropriate affect, normal mood. ABSENT: homicidal ideation, suicidal ideation Skin exam: PRESENT: dry, intact, warm. ABSENT: cyanosis, rash Results Laboratory Results: 05/22/18 15:55 Urine Color YELLOW Urine Appearance SLIGHTLY-CLOUDY Urine pH 5.0 Ur Specific [place] 1.028 Urine Protein 100 H Urine Glucose (UA) NEGATIVE Urine Ketones NEGATIVE Urine Blood NEGATIVE Urine Nitrite NEGATIVE Ur Leukocyte Esterase NEGATIVE Urine WBC (Auto) 1 Impressions: Chest X-Ray 05/22/18 13:33 IMPRESSION: NO SIGNIFICANT RADIOGRAPHIC FINDING IN THE CHEST. Assessment & Plan - Diagnosis (1) Fever of unknown origin with HIV infection Is this a current diagnosis for this admission?: Yes Plan: Patient will receive broad spectrum antibiotic coverage pending culture results. His chest X ray is devoid of any acute pathology so far. His U/A is not clear about possible infection process. I will start him on IV Primaxin and Vancomycin. (2) Diffuse large B cell lymphoma Qualifiers: Lymphoma site: unspecified region Qualified Code(s): C83.30 - Diffuse large B-cell lymphoma, unspecified site Is this a current diagnosis for this admission?: Yes Plan: See admitting physician orders as per his oncologist. (3) HIV (human immunodeficiency virus infection) Is this a current diagnosis for this admission?: Yes Plan: He will remain on all his preadmission anti Viral medication management. (4) HSV (herpes simplex virus) infection Is this a current diagnosis for this admission?: Yes Plan: He will remain on all his preadmission anti Viral medication management. (5) Splenomegaly with HIV infection Is this a current diagnosis for this admission?: Yes Plan: He will remain on all his preadmission anti Viral medication management. (6) Anemia associated with chemotherapy Is this a current diagnosis for this admission?: Yes Plan: We will continue to monitor his CBC indices and transfuse as necessary. I will discuss use of erythropietin with his medical oncologist. (7) Chemotherapy-induced thrombocytopenia Is this a current diagnosis for this admission?: Yes Plan: Continue to monitor and transfuse as indicated. - Time Time Spent: 50 to 70 Minutes - More than 50% in care coordianteion and review of his medical record and discussion of care plan with patient and spouse at bedside. Medications reviewed and adjusted accordingly: Yes Anticipated discharge: Home Within: Other - Inpatient Certification Based on my medical assessment, after consideration of the patient's comorbidities, presenting symptoms, or acuity I expect that the services needed warrant INPATIENT care.: Yes I certify that my determination is in accordance with my understanding of Medicare's requirements for reasonable and necessary INPATIENT services [42 CFR 412.3e].: Yes Medical Necessity: Need Close Monitoring Due to Risk of Patient Decompensation, Need For IV Fluids, Need For Continuous Telemetry Monitoring, Need for IV Antibiotics, Risk of Complication if Not Cared For in Hospital Post Hospital Care: D/C Career Representative Documentation - Plan Summary Plan Summary: See admitting attending physician orders as per outlined care plan.
[2018-05-22 21:40] LABS: HEMATOCRIT 22.5 % (37.9-51.0); MEAN CORPUSCULAR HEMOGLOBIN 30.1 pg (27.0-33.4); MEAN CORPUSCULAR HGB CONC 34.2 g/dL (32.0-36.0); MEAN CORPUSCULAR VOLUME 88 fl (80-97); RED BLOOD COUNT 2.55 10^6/uL (4.35-5.55); RED CELL DISTRIBUTION WIDTH 17.8 % (11.5-14.0)
[2018-05-22 22:09] LABS: ALANINE AMINOTRANSFERASE 23 U/L (21-72); ALBUMIN 2.8 g/dL (3.5-5.0); ALKALINE PHOSPHATASE 179 U/L (38-126); ANION GAP 12 (5-19); ASPARTATE AMINO TRANSFERASE 75 U/L (17-59); BILIRUBIN,DIRECT 0.7 mg/dL (0.0-0.4); BILIRUBIN,TOTAL 1.2 mg/dL (0.2-1.3); BLOOD UREA NITROGEN 20 mg/dL (7-20); CALCIUM 8.3 mg/dL (8.4-10.2); CARBON DIOXIDE 21 mmol/L (22-30); CHLORIDE 98 mmol/L (98-107); GLUCOSE 101 mg/dL (75-110); POTASSIUM 4.4 mmol/L (3.6-5.0); SODIUM 130.5 mmol/L (137-145); TOTAL PROTEIN 5.2 g/dL (6.3-8.2)
[2018-05-22] MEDS ORDERED: ACYCLOVIR 200 MG CAPSULE PO ONE (22:15)
[2018-05-22] MEDS: VANCOMYCIN HCL 1,000 MG in DEXTROSE 5%-WATER 250 ML IV SCH (22:17)
[2018-05-22 22:40] LABS: PLATELET COUNT 31 10^3/uL (150-450)
[2018-05-22 22:41] LABS: HEMOGLOBIN 7.7 g/dL (13.5-17.0)
[2018-05-22 22:43] LABS: ABSOLUTE LYMPHOCYTES# (MANUAL) 0.8 10^3/uL (0.5-4.7); ABSOLUTE MONOCYTES # (MANUAL) 0.1 10^3/uL (0.1-1.4); ABSOLUTE NEUTROPHILS# (MANUAL) 4.4 10^3/uL (1.7-8.2); BASOPHILS % (MANUAL) 0 % (0-2); EOSINOPHILS % (MANUAL) 11 % (0-6); HYPOCHROMASIA 3+; LYMPHOCYTES % (MANUAL) 9 % (13-45); MONOCYTES % (MANUAL) 1 % (3-13); POLYCHROMASIA SLIGHT; SEGMENTED NEUTROPHILS % (MAN) 74 % (42-78); TOTAL CELLS COUNTED 100
[2018-05-22 22:44] LABS: ANISOCYTOSIS 2+; PLATELET COMMENT DECREASED
[2018-05-23] MEDS: IMIPENEM/CILASTATIN SODIUM 500 MG in NORMAL SALINE 100 ML IV SCH ×4 (03:02→21:55)
[2018-05-23] MEDS ORDERED: NORMAL SALINE IV PRN (05:00)
[2018-05-23] MEDS ORDERED: ONDANSETRON HCL/PF 16 MG, DEXAMETHASONE SOD PHOSPHATE 20 MG in NORMAL SALINE 50 ML IV PRN (05:00)
[2018-05-23] MEDS ORDERED: FOSAPREPITANT DIMEGLUMINE 150 MG in NORMAL SALINE 150 ML IV PRN (05:00)
[2018-05-23] MEDS ORDERED: VINCRISTINE SULFATE 2 MG in SYRINGE, DISPOSABLE, 1 EACH IV PRN (05:00)
[2018-05-23] MEDS ORDERED: DOXORUBICIN HCL 110 MG in SYRINGE, DISPOSABLE, 1 EACH IV PRN (05:00)
[2018-05-23] MEDS ORDERED: CYCLOPHOSPHAMIDE IV PRN (05:00)
[2018-05-23] MEDS: VANCOMYCIN HCL 1,000 MG in DEXTROSE 5%-WATER 250 ML IV SCH ×3 (05:11→23:07)
[2018-05-23] MEDS: NORMAL SALINE 1000 ML 1,000 ML IV PRN ×2 (05:15→21:45)
[2018-05-23] MEDS ORDERED: DIGOXIN INJ 0.5 MG/2 ML AMPULE IV ONE (07:00)
--- NOTE | 2018-05-23 07:53 | EKG REPORT ---
SEVERITY:- ABNORMAL ECG - SINUS TACHYCARDIA BORDERLINE T ABNORMALITIES, INFERIOR LEADS PROLONGED QT INTERVAL : Confirmed by: Lawrence Hunter MD 23-May-2018 07:52:39
--- NOTE | 2018-05-23 07:54 | EKG REPORT ---
SEVERITY:- ABNORMAL ECG - SINUS TACHYCARDIA PROLONGED QT INTERVAL : Confirmed by: Lawrence Hunter MD 23-May-2018 07:53:28
--- NOTE | 2018-05-23 09:52 | RADIOLOGY REPORT (SQ) ---
EXAM DESCRIPTION: NM MUGA REST COMPLETED DATE/TIME: 05/23/2018 9:43 am REASON FOR STUDY: Prior to chemo/ Adriamycin COMPARISON: None. RADIONUCLIDE AND DOSE: 23.5 mCi technetium 99m labeled red blood cells The route of agent administration: Intravenous TECHNIQUE: Following administration of the radionuclide, gated images of the heart are obtained in t hree projections. Left ventricular functional analysis performed. LIMITATIONS: None. FINDINGS: LEFT VENTRICULAR FUNCTION: EJECTION FRACTION: 74%. END-DIASTOLIC VOLUME: 60 mL. END-SYSTOLIC VOLUME: 22 mL. WALL MOTION: No focal wall motion abnormalities. OTHER: No other significant finding. IMPRESSION: NORMAL CARDIAC MUGA STUDY. NORMAL LEFT VENTRICULAR FUNCTION WITH VALUES ABOVE. TECHNICAL DOCUMENTATION: JOB ID: [id number] [employer]- All Rights Reserved Reading location - IP/workstation name: [email or web address]
[2018-05-23] MEDS ORDERED: PREDNISONE 20 MG TABLET PO SCH (10:00)
[2018-05-23] MEDS ORDERED: DOLUTEGRAVIR PO SCH (10:00)
[2018-05-23] MEDS ORDERED: [UNRECOGNIZED DRUG - OTHER] PO SCH (10:00)
[2018-05-23] MEDS ORDERED: TENOFOVIR DISOPROXIL FUMARATE 300 MG PO SCH (10:00)
[2018-05-23] MEDS ORDERED: ABACAVIR PO SCH (10:00)
[2018-05-23] MEDS ORDERED: LAMIVUDI PO SCH (10:00)
[2018-05-23] MEDS: ALLOPURINOL 300 MG TABLET PO SCH (10:50)
[2018-05-23] MEDS: DRONABINOL 2.5 MG CAPSULE PO SCH ×2 (10:50→18:08)
[2018-05-23] MEDS: PREDNISONE 20 MG TABLET PO SCH (10:51)
[2018-05-23] MEDS: ACYCLOVIR 200 MG CAPSULE PO SCH ×2 (10:51→18:08)
[2018-05-23 12:36] LABS: PATH REVIEW PATHOLOGIST REVIEWED
--- NOTE | 2018-05-23 13:16 | EKG REPORT ---
SEVERITY:- ABNORMAL ECG - SINUS TACHYCARDIA BORDERLINE T ABNORMALITIES, INFERIOR LEADS PROLONGED QT INTERVAL : Confirmed by: Lawrence Hunter MD 23-May-2018 13:15:46
--- NOTE | 2018-05-23 13:16 | EKG REPORT ---
SEVERITY:- BORDERLINE ECG - SINUS TACHYCARDIA BORDERLINE T WAVE ABNORMALITIES : Confirmed by: Lawrence Hunter MD 23-May-2018 13:14:45
[2018-05-23] MEDS ORDERED: NORMAL SALINE 1000 ML 1,000 ML IV ONE (19:41)
--- NOTE | 2018-05-23 19:48 | PDOC PROGRESS REPORT ---
Subjective Progress Note for:: 05/23/18 Subjective:: Patient denied recurrent fever since last evaluation. No nausea, vomiting, abdominal pain or diarrhea. Bowel movement have been satisfactory. No chest pain or difficulty with breathing. Remain on IV antibiotic coverage and IV fluid support. Patient was transfused 2 units PRBC and received chemotherapy as planned earlier today. His MUGA scan revealed satisfactory LVEF and LV structure. Reason For Visit: FEVER,ABDOMINAL PAIN, TACHYCARDIA Physical Exam Vital Signs: Temp Pulse Resp BP Pulse Ox 98.0 F 130 H 20 90/60 L 98 05/23/18 12:27 05/23/18 14:00 05/23/18 12:27 05/23/18 12:27 05/23/18 12:27 Intake & Output 05/22/18 05/23/18 05/24/18 06:59 06:59 06:59 Intake Total 2772 2342 Output Total 275 Balance 2497 2342 Weight 84.8 kg General appearance: PRESENT: no acute distress, well-developed, well-nourished Head exam: PRESENT: atraumatic, normocephalic Eye exam: PRESENT: conjunctiva pink, EOMI, PERRLA. ABSENT: scleral icterus Ear exam: PRESENT: normal external ear exam Mouth exam: PRESENT: moist Respiratory exam: PRESENT: clear to auscultation kulwant Cardiovascular exam: PRESENT: RRR, +S1, +S2, tachycardia Vascular exam: PRESENT: normal capillary refill. ABSENT: pallor GI/Abdominal exam: PRESENT: normal bowel sounds, soft. ABSENT: distended, guarding, mass, organolmegaly, rebound, tenderness Extremities exam: ABSENT: pedal edema Musculoskeletal exam: PRESENT: normal inspection Neurological exam: PRESENT: alert, awake, oriented to person, oriented to place, oriented to time, oriented to situation, CN II-XII grossly intact. ABSENT: motor sensory deficit Psychiatric exam: PRESENT: appropriate affect, normal mood. ABSENT: homicidal ideation, suicidal ideation Skin exam: PRESENT: dry, intact, warm. ABSENT: cyanosis, rash Results Laboratory Results: 05/22/18 21:27 05/22/18 21:27 05/22/18 05/22/18 05/22/18 21:27 21:27 23:02 WBC 6.0 RBC 2.55 L Hgb 7.7 L Hct 22.5 L MCV 88 MCH 30.1 MCHC 34.2 RDW 17.8 H Plt Count 31 L Seg Neutrophils % Not Reportable Lymphocytes % Not Reportable Monocytes % Not Reportable Eosinophils % Not Reportable Basophils % Not Reportable Absolute Neutrophils Not Reportable Absolute Lymphocytes Not Reportable Absolute Monocytes Not Reportable Absolute Eosinophils Not Reportable Absolute Basophils Not Reportable Sodium 130.5 L Potassium 4.4 Chloride 98 Carbon Dioxide 21 L Anion Gap 12 BUN 20 Creatinine 0.81 Est GFR ( Amer) > 60 Est GFR (Non-Af Amer) > 60 Glucose 101 Calcium 8.3 L Total Bilirubin 1.2 AST 75 H ALT 23 Alkaline Phosphatase 179 H Total Protein 5.2 L Albumin 2.8 L Blood Type A NEGATIVE Antibody Screen NEGATIVE Impressions: MUGA 05/22/18 00:00 IMPRESSION: NORMAL CARDIAC MUGA STUDY. NORMAL LEFT VENTRICULAR FUNCTION WITH VALUES ABOVE. Chest X-Ray 05/22/18 13:33 IMPRESSION: NO SIGNIFICANT RADIOGRAPHIC FINDING IN THE CHEST. Assessment & Plan - Diagnosis (1) Fever of unknown origin with HIV infection Is this a current diagnosis for this admission?: Yes (2) Diffuse large B cell lymphoma Qualifiers: Lymphoma site: unspecified region Qualified Code(s): C83.30 - Diffuse large B-cell lymphoma, unspecified site Is this a current diagnosis for this admission?: Yes (3) HIV (human immunodeficiency virus infection) Is this a current diagnosis for this admission?: Yes (4) HSV (herpes simplex virus) infection Is this a current diagnosis for this admission?: Yes (5) Splenomegaly with HIV infection Is this a current diagnosis for this admission?: Yes (6) Anemia associated with chemotherapy Is this a current diagnosis for this admission?: Yes (7) Chemotherapy-induced thrombocytopenia Is this a current diagnosis for this admission?: Yes - Time Time Spent with patient: 25-34 minutes Medications reviewed and adjusted accordingly: Yes Anticipated discharge: Home Within: Other - Inpatient Certification Based on my medical assessment, after consideration of the patient's comorbidities, presenting symptoms, or acuity I expect that the services needed warrant INPATIENT care.: Yes I certify that my determination is in accordance with my understanding of Medicare's requirements for reasonable and necessary INPATIENT services [42 CFR 412.3e].: Yes Medical Necessity: Need Close Monitoring Due to Risk of Patient Decompensation, Need For IV Fluids, Need For Continuous Telemetry Monitoring, Need for IV Antibiotics, Risk of Complication if Not Cared For in Hospital Post Hospital Care: D/C Audit Partner Documentation - Plan Summary Plan Summary: Continue all current medication management. IV N/S 1 liter bolus administration and maintain on 100mL/hr thereafter. Obtain post transfusion CBC. Follow up on culture results.
[2018-05-23 20:39] LABS: ABSOLUTE EOSINOPHILS # (AUTO) 0.1 10^3/uL (0.0-0.6); ABSOLUTE MONOCYTES (AUTO) 0.1 10^3/uL (0.1-1.4); ABSOLUTE NEUT (AUTO) 4.4 10^3/uL (1.7-8.2); BASOPHILS % (AUTO) 0.6 % (0-2); EOSINOPHILS % (AUTO) 1.3 % (0-6); HEMATOCRIT 26.4 % (37.9-51.0); LYMPHOCYTES % (AUTO) 18.1 % (13-45); MEAN CORPUSCULAR HEMOGLOBIN 29.8 pg (27.0-33.4); MEAN CORPUSCULAR HGB CONC 34.2 g/dL (32.0-36.0); MEAN CORPUSCULAR VOLUME 87 fl (80-97); MONOCYTES % (AUTO) 1.8 % (3-13); RED BLOOD COUNT 3.03 10^6/uL (4.35-5.55); RED CELL DISTRIBUTION WIDTH 17.7 % (11.5-14.0); SEGMENTED NEUTROPHILS % (AUTO) 78.2 % (42-78); TOTAL CELLS COUNTED % (AUTO) 100 %; WHITE BLOOD COUNT 5.6 10^3/uL (4.0-10.5)
[2018-05-23 21:00] LABS: PLATELET COUNT 36 10^3/uL (150-450)
--- NOTE | 2018-05-23 21:18 | Progress Note ---
Provider Note Provider Note: I was asked to see the patient by Dr. Phillips on 05/22/2018, for tachycardia. I saw the patient on 05/22 and also swelling 05/23. The patient's EKG on 05/22/18 was read by the computer as junctional tachycardia. On closer analysis of the EKG my opinion was that it was sinus tachycardia. A repeat EKG with Bill leads, showed clearly P wave of sinus configuration. Again on 05/23/2018 his monitor showed clearly sinus tachycardia. Note that the patient has a history of HIV infection, and also has history of lymphoma, who was admitted with abdominal pain, with a diagnosis of recurrence of lymphoma/active lymphoma, and patient to receive chemotherapy clinically who appears to be dehydrated. He has no cardiac history, and except for his age he has no coronary risk factors. Also his cardiac examination is unremarkable, without any evidence of heart failure. There is no significant valvular stenotic or regurgitant lesions by physical examination. There is nothing of cardiac origin causing the patient's sinus tachycardia. The sinus tachycardia secondary to patient's acute lymphoma process and severe dehydration. Note is MUGA scan came back with LV ejection fraction 74%. Discussed with Dr. Phillips, and is already hydrating the patient. The patient is also being started on chemotherapy. Hence formal consult not done since there is no cardiology problem at present. This was discussed with Dr. Phillips. Would recommend treating the patient's underlying cause for the patient's sinus tachycardia. Please f feel free to call me if any cardiac problems should arise.
[2018-05-23] MEDS: TENOFOVIR DISOPROXIL FUMARATE 300 MG PO SCH (21:56)
[2018-05-23] MEDS: TRIUMEQ PO SCH (21:56)
[2018-05-23] MEDS ORDERED: TRIUMEQ PO SCH (22:00)
[2018-05-23 22:14] LABS: VANCOMYCIN,TROUGH 8.6 ug/mL (5.0-20.0)
[2018-05-24] MEDS: IMIPENEM/CILASTATIN SODIUM 500 MG in NORMAL SALINE 100 ML IV SCH ×4 (03:11→20:53)
[2018-05-24] MEDS: VANCOMYCIN HCL 1,000 MG in DEXTROSE 5%-WATER 250 ML IV SCH (06:22)
[2018-05-24] MEDS: DRONABINOL 2.5 MG CAPSULE PO SCH ×2 (08:32→17:05)
[2018-05-24] MEDS: ACYCLOVIR 200 MG CAPSULE PO SCH ×2 (10:14→18:19)
[2018-05-24] MEDS: PREDNISONE 20 MG TABLET PO SCH (10:15)
[2018-05-24] MEDS: ALLOPURINOL 300 MG TABLET PO SCH (10:15)
[2018-05-24] MEDS: VANCOMYCIN HCL 1,250 MG in DEXTROSE 5%-WATER 250 ML IV SCH ×3 (12:19→23:00)
--- NOTE | 2018-05-24 17:25 | PDOC PROGRESS REPORT ---
Subjective Progress Note for:: 05/24/18 Subjective:: Patient denied fever or chills. No nausea, vomiting, abdominal pain or diarrhea. No chest pain or difficulty with breathing. Remain on IV antibiotic coverage and IV fluid support. Reason For Visit: FEVER,ABDOMINAL PAIN, TACHYCARDIA Physical Exam Vital Signs: Temp Pulse Resp BP Pulse Ox 97.3 F 110 H 16 104/63 97 05/24/18 03:10 05/24/18 14:00 05/24/18 03:10 05/24/18 03:10 05/24/18 03:10 Intake & Output 05/23/18 05/24/18 05/25/18 06:59 06:59 06:59 Intake Total 2772 5077 1404 Output Total 275 200 Balance 2497 4877 1404 Weight 84.8 kg 85.4 kg Physical Exam: General appearance: PRESENT: no acute distress, well-developed, well-nourished Head exam: PRESENT: atraumatic, normocephalic Eye exam: PRESENT: conjunctiva pink, EOMI, PERRLA. ABSENT: pallor, scleral icterus Ear exam: PRESENT: normal external ear exam Mouth exam: PRESENT: moist Respiratory exam: PRESENT: clear to auscultation kulwant Cardiovascular exam: PRESENT: RRR, +S1, +S2, tachycardia GI/Abdominal exam: PRESENT: normal bowel sounds, soft. ABSENT: distended, guarding, mass, organomegaly, rebound, tenderness Extremities exam: ABSENT: pedal edema Musculoskeletal exam: PRESENT: normal inspection Neurological exam: PRESENT: alert, awake, oriented to person, oriented to place, oriented to time, oriented to situation, CN II-XII grossly intact. ABSENT: motor sensory deficit Psychiatric exam: PRESENT: appropriate affect, normal mood. ABSENT: homicidal ideation, suicidal ideation Skin exam: PRESENT: dry, intact, warm. ABSENT: cyanosis, rash Results Laboratory Results: 05/23/18 20:20 05/22/18 21:27 05/23/18 20:20 WBC 5.6 RBC 3.03 L Hgb 9.0 L Hct 26.4 L MCV 87 MCH 29.8 MCHC 34.2 RDW 17.7 H Plt Count 36 L Seg Neutrophils % 78.2 H Lymphocytes % 18.1 Monocytes % 1.8 L Eosinophils % 1.3 Basophils % 0.6 Absolute Neutrophils 4.4 Absolute Lymphocytes 1.0 Absolute Monocytes 0.1 Absolute Eosinophils 0.1 Absolute Basophils 0.0 05/22/18 15:55 Clean Catch Midstream Urine Culture - Final NO GROWTH 2 DAYS Impressions: MUGA 05/22/18 00:00 IMPRESSION: NORMAL CARDIAC MUGA STUDY. NORMAL LEFT VENTRICULAR FUNCTION WITH VALUES ABOVE. Chest X-Ray 05/22/18 13:33 IMPRESSION: NO SIGNIFICANT RADIOGRAPHIC FINDING IN THE CHEST. Assessment & Plan - Diagnosis (1) Fever of unknown origin with HIV infection Is this a current diagnosis for this admission?: Yes (2) Diffuse large B cell lymphoma Qualifiers: Lymphoma site: unspecified region Qualified Code(s): C83.30 - Diffuse large B-cell lymphoma, unspecified site Is this a current diagnosis for this admission?: Yes (3) HIV (human immunodeficiency virus infection) Is this a current diagnosis for this admission?: Yes (4) HSV (herpes simplex virus) infection Is this a current diagnosis for this admission?: Yes (5) Splenomegaly with HIV infection Is this a current diagnosis for this admission?: Yes (6) Anemia associated with chemotherapy Is this a current diagnosis for this admission?: Yes (7) Chemotherapy-induced thrombocytopenia Is this a current diagnosis for this admission?: Yes - Time Time Spent with patient: 25-34 minutes Medications reviewed and adjusted accordingly: Yes Anticipated discharge: Home with Homehealth Within: Other - Inpatient Certification Based on my medical assessment, after consideration of the patient's comorbidities, presenting symptoms, or acuity I expect that the services needed warrant INPATIENT care.: Yes I certify that my determination is in accordance with my understanding of Medicare's requirements for reasonable and necessary INPATIENT services [42 CFR 412.3e].: Yes Medical Necessity: Need Close Monitoring Due to Risk of Patient Decompensation, Need For IV Fluids, Need For Continuous Telemetry Monitoring, Need for IV Antibiotics, Risk of Complication if Not Cared For in Hospital Post Hospital Care: D/C [employer] Documentation - Plan Summary Plan Summary: Decrease IV fluid rate to 100 ml/hour. Maintain on IV Primaxin and Vancomycin coverage. Follow up on blood culture findings.
[2018-05-24] MEDS: NORMAL SALINE 1000 ML 1,000 ML IV PRN (18:25)
[2018-05-24] MEDS: TENOFOVIR DISOPROXIL FUMARATE 300 MG PO SCH (21:00)
[2018-05-24] MEDS: TRIUMEQ PO SCH (21:01)
[2018-05-25] MEDS: IMIPENEM/CILASTATIN SODIUM 500 MG in NORMAL SALINE 100 ML IV SCH ×4 (03:35→20:19)
[2018-05-25] MEDS: VANCOMYCIN HCL 1,250 MG in DEXTROSE 5%-WATER 250 ML IV SCH ×3 (05:24→18:34)
[2018-05-25] MEDS: DRONABINOL 2.5 MG CAPSULE PO SCH ×2 (09:27→16:33)
[2018-05-25] MEDS: NORMAL SALINE 1000 ML 1,000 ML IV PRN (09:29)
[2018-05-25] MEDS: PREDNISONE 20 MG TABLET PO SCH (13:43)
[2018-05-25] MEDS: ACYCLOVIR 200 MG CAPSULE PO SCH ×2 (13:43→18:34)
[2018-05-25] MEDS: ALLOPURINOL 300 MG TABLET PO SCH (13:44)
[2018-05-25] MEDS ORDERED: BISACODYL 5 MG TABEC PO PRN (19:37)
--- NOTE | 2018-05-25 21:06 | PDOC PROGRESS REPORT ---
Subjective Progress Note for:: 05/25/18 Subjective:: Patient was seen by the bedside he complained of constipation Reason For Visit: FEVER,ABDOMINAL PAIN, TACHYCARDIA Physical Exam Vital Signs: Temp Pulse Resp BP Pulse Ox 98.0 F 115 H 18 114/67 96 05/25/18 19:02 05/25/18 19:02 05/25/18 19:02 05/25/18 19:02 05/25/18 19:02 Intake & Output 05/24/18 05/25/18 05/26/18 06:59 06:59 06:59 Intake Total 5077 4154 1786 Output Total 200 1300 1300 Balance 4877 2854 486 Weight 85.4 kg 92.1 kg General appearance: PRESENT: no acute distress Eye exam: PRESENT: PERRLA Respiratory exam: PRESENT: clear to auscultation kulwant Cardiovascular exam: PRESENT: +S1, +S2 GI/Abdominal exam: PRESENT: soft Neurological exam: PRESENT: alert Results Laboratory Results: 05/23/18 20:20 05/22/18 21:27 Impressions: MUGA 05/22/18 00:00 IMPRESSION: NORMAL CARDIAC MUGA STUDY. NORMAL LEFT VENTRICULAR FUNCTION WITH VALUES ABOVE. Chest X-Ray 05/22/18 13:33 IMPRESSION: NO SIGNIFICANT RADIOGRAPHIC FINDING IN THE CHEST. Assessment & Plan - Diagnosis (1) Fever of unknown origin with HIV infection Is this a current diagnosis for this admission?: Yes Plan: Continue empiric IV antibiotic (2) Constipation Qualifiers: Constipation type: unspecified constipation type Qualified Code(s): K59.00 - Constipation, unspecified Is this a current diagnosis for this admission?: Yes Plan: Give Dulcolax 20 mg (3) Diffuse large B cell lymphoma Qualifiers: Lymphoma site: unspecified region Qualified Code(s): C83.30 - Diffuse large B-cell lymphoma, unspecified site Is this a current diagnosis for this admission?: Yes (5) HIV (human immunodeficiency virus infection) Is this a current diagnosis for this admission?: Yes
[2018-05-25] MEDS: TRIUMEQ PO SCH (21:40)
[2018-05-25] MEDS: TENOFOVIR DISOPROXIL FUMARATE 300 MG PO SCH (21:41)
[2018-05-26] MEDS: VANCOMYCIN HCL 1,250 MG in DEXTROSE 5%-WATER 250 ML IV SCH ×3 (00:13→13:40)
[2018-05-26] MEDS: IMIPENEM/CILASTATIN SODIUM 500 MG in NORMAL SALINE 100 ML IV SCH ×4 (02:01→21:03)
[2018-05-26] MEDS: NORMAL SALINE 1000 ML 1,000 ML IV PRN (06:37)
[2018-05-26] MEDS: DRONABINOL 2.5 MG CAPSULE PO SCH ×2 (08:18→15:32)
[2018-05-26] MEDS: PREDNISONE 20 MG TABLET PO SCH (10:11)
[2018-05-26] MEDS: ALLOPURINOL 300 MG TABLET PO SCH (10:12)
[2018-05-26] MEDS: ACYCLOVIR 200 MG CAPSULE PO SCH ×2 (10:12→17:04)
[2018-05-26 13:18] LABS: ALANINE AMINOTRANSFERASE 36 U/L (21-72); ALBUMIN 2.7 g/dL (3.5-5.0); ALKALINE PHOSPHATASE 132 U/L (38-126); ASPARTATE AMINO TRANSFERASE 37 U/L (17-59); BILIRUBIN,DIRECT 0.5 mg/dL (0.0-0.4); BILIRUBIN,TOTAL 1.2 mg/dL (0.2-1.3); BLOOD UREA NITROGEN 17 mg/dL (7-20); CALCIUM 8.2 mg/dL (8.4-10.2); GLUCOSE 108 mg/dL (75-110); POTASSIUM 4.6 mmol/L (3.6-5.0); TOTAL PROTEIN 5.1 g/dL (6.3-8.2)
[2018-05-26 13:25] LABS: VANCOMYCIN,TROUGH 20.3 ug/mL (5.0-20.0)
[2018-05-26 13:35] LABS: CARBON DIOXIDE 27 mmol/L (22-30); CHLORIDE 101 mmol/L (98-107); SODIUM 131.5 mmol/L (137-145)
[2018-05-26 13:37] LABS: ANION GAP 4 (5-19)
[2018-05-26 14:27] LABS: ABSOLUTE LYMPHOCYTES (AUTO) 0.2 10^3/uL (0.5-4.7); ABSOLUTE NEUT (AUTO) 2.7 10^3/uL (1.7-8.2); BASOPHILS % (AUTO) 0.2 % (0-2); EOSINOPHILS % (AUTO) 0.4 % (0-6); HEMATOCRIT 23.4 % (37.9-51.0); LYMPHOCYTES % (AUTO) 6.6 % (13-45); MEAN CORPUSCULAR HEMOGLOBIN 29.3 pg (27.0-33.4); MEAN CORPUSCULAR HGB CONC 33.4 g/dL (32.0-36.0); MEAN CORPUSCULAR VOLUME 88 fl (80-97); MONOCYTES % (AUTO) 0.5 % (3-13); RED BLOOD COUNT 2.66 10^6/uL (4.35-5.55); RED CELL DISTRIBUTION WIDTH 17.5 % (11.5-14.0); SEGMENTED NEUTROPHILS % (AUTO) 92.3 % (42-78); TOTAL CELLS COUNTED % (AUTO) 100 %
[2018-05-26 14:44] LABS: PLATELET COUNT 32 10^3/uL (150-450); WHITE BLOOD COUNT 2.9 10^3/uL (4.0-10.5)
[2018-05-26 14:48] LABS: HEMOGLOBIN 7.8 g/dL (13.5-17.0)
--- NOTE | 2018-05-26 16:13 | PDOC PROGRESS REPORT ---
Subjective Progress Note for:: 05/26/18 Subjective:: Patient is seen by the bedside, still complaining of constipation, he has pancytopenia, chemotherapy related Reason For Visit: FEVER,ABDOMINAL PAIN, TACHYCARDIA Physical Exam Vital Signs: Temp Pulse Resp BP Pulse Ox 97.9 F 121 H 16 105/57 L 100 05/26/18 15:24 05/26/18 15:24 05/26/18 15:24 05/26/18 15:24 05/26/18 15:24 Intake & Output 05/25/18 05/26/18 05/27/18 06:59 06:59 06:59 Intake Total 4154 4058 572 Output Total 1300 2800 1200 Balance 2854 1258 -628 Weight 92.1 kg 92.3 kg General appearance: PRESENT: no acute distress Eye exam: PRESENT: PERRLA Respiratory exam: PRESENT: clear to auscultation kulwant Cardiovascular exam: PRESENT: +S1, +S2 GI/Abdominal exam: PRESENT: soft Neurological exam: PRESENT: alert Results Laboratory Results: 05/26/18 13:55 05/26/18 12:05 05/26/18 05/26/18 05/26/18 12:05 12:05 13:55 WBC 2.9 L D RBC 2.66 L Hgb 7.8 L Hct 23.4 L MCV 88 MCH 29.3 MCHC 33.4 RDW 17.5 H Plt Count 32 L Seg Neutrophils % 92.3 H Lymphocytes % 6.6 L Monocytes % 0.5 L Eosinophils % 0.4 Basophils % 0.2 Absolute Neutrophils 2.7 Absolute Lymphocytes 0.2 L Absolute Monocytes 0.0 L Absolute Eosinophils 0.0 Absolute Basophils 0.0 Sodium 131.5 L Potassium 4.6 Chloride 101 Carbon Dioxide 27 Anion Gap 4 L BUN 17 Creatinine Cancelled 0.53 Est GFR ( Amer) Cancelled > 60 Est GFR (Non-Af Amer) Cancelled > 60 Glucose 108 Calcium 8.2 L Total Bilirubin 1.2 AST 37 ALT 36 Alkaline Phosphatase 132 H Total Protein 5.1 L Albumin 2.7 L Impressions: MUGA 05/22/18 00:00 IMPRESSION: NORMAL CARDIAC MUGA STUDY. NORMAL LEFT VENTRICULAR FUNCTION WITH VALUES ABOVE. Chest X-Ray 05/22/18 13:33 IMPRESSION: NO SIGNIFICANT RADIOGRAPHIC FINDING IN THE CHEST. Assessment & Plan - Diagnosis (1) Fever of unknown origin with HIV infection Is this a current diagnosis for this admission?: Yes (2) Constipation Qualifiers: Constipation type: unspecified constipation type Qualified Code(s): K59.00 - Constipation, unspecified Is this a current diagnosis for this admission?: Yes Plan: Give Dulcolax 20 mg (3) Diffuse large B cell lymphoma Qualifiers: Lymphoma site: unspecified region Qualified Code(s): C83.30 - Diffuse large B-cell lymphoma, unspecified site Is this a current diagnosis for this admission?: Yes (4) Pancytopenia Is this a current diagnosis for this admission?: Yes Plan: This is related to cytotoxic therapy, chemotherapy (5) HIV (human immunodeficiency virus infection) Is this a current diagnosis for this admission?: Yes
[2018-05-26 16:40] LABS: UR PRO/CREAT RATIO RESULT 0.9 mg/mg (0.0-0.2); URINE CREATININE 26.3 mg/dL (22-328); URINE PROTEIN 24.6 mg/dL (<12)
[2018-05-26] MEDS: TENOFOVIR DISOPROXIL FUMARATE 300 MG PO SCH (22:32)
[2018-05-26] MEDS: TRIUMEQ PO SCH (22:33)
[2018-05-27] MEDS: IMIPENEM/CILASTATIN SODIUM 500 MG in NORMAL SALINE 100 ML IV SCH ×4 (02:33→20:17)
[2018-05-27] MEDS: VANCOMYCIN HCL 1,250 MG in DEXTROSE 5%-WATER 250 ML IV SCH ×3 (06:10→21:46)
[2018-05-27] MEDS: DRONABINOL 2.5 MG CAPSULE PO SCH ×2 (08:32→16:51)
[2018-05-27] MEDS: PREDNISONE 20 MG TABLET PO SCH (10:35)
[2018-05-27] MEDS: ACYCLOVIR 200 MG CAPSULE PO SCH ×2 (10:39→17:57)
[2018-05-27] MEDS: ALLOPURINOL 300 MG TABLET PO SCH (10:39)
--- NOTE | 2018-05-27 16:53 | PDOC PROGRESS REPORT ---
Subjective Progress Note for:: 05/27/18 Subjective:: Patient seen by the bedside, he has sinus tachycardia with a background of pancytopenia to do blood work is pending Reason For Visit: FEVER,ABDOMINAL PAIN, TACHYCARDIA Physical Exam Vital Signs: Temp Pulse Resp BP Pulse Ox 97.9 F 133 H 17 115/59 L 100 05/27/18 12:02 05/27/18 12:02 05/27/18 12:02 05/27/18 12:02 05/27/18 12:02 Intake & Output 05/26/18 05/27/18 05/28/18 06:59 06:59 06:59 Intake Total 4058 4091 1058 Output Total 2800 3244 650 Balance 1258 847 408 Weight 92.3 kg 90.5 kg General appearance: PRESENT: no acute distress Eye exam: PRESENT: PERRLA Respiratory exam: PRESENT: clear to auscultation kulwant Cardiovascular exam: PRESENT: +S1, +S2 GI/Abdominal exam: PRESENT: soft Neurological exam: PRESENT: alert Results Laboratory Results: 05/26/18 13:55 05/26/18 12:05 05/22/18 15:48 Blood Blood Culture - Final NO GROWTH IN 5 DAYS 05/22/18 15:30 Blood Blood Culture - Final NO GROWTH IN 5 DAYS Impressions: MUGA 05/22/18 00:00 IMPRESSION: NORMAL CARDIAC MUGA STUDY. NORMAL LEFT VENTRICULAR FUNCTION WITH VALUES ABOVE. Chest X-Ray 05/22/18 13:33 IMPRESSION: NO SIGNIFICANT RADIOGRAPHIC FINDING IN THE CHEST. Assessment & Plan - Diagnosis (1) Fever of unknown origin with HIV infection Is this a current diagnosis for this admission?: Yes (2) Constipation Qualifiers: Constipation type: unspecified constipation type Qualified Code(s): K59.00 - Constipation, unspecified Is this a current diagnosis for this admission?: Yes (3) Diffuse large B cell lymphoma Qualifiers: Lymphoma site: unspecified region Qualified Code(s): C83.30 - Diffuse large B-cell lymphoma, unspecified site Is this a current diagnosis for this admission?: Yes (4) Pancytopenia Is this a current diagnosis for this admission?: Yes (5) HIV (human immunodeficiency virus infection) Is this a current diagnosis for this admission?: Yes
[2018-05-27 19:27] LABS: ABSOLUTE LYMPHOCYTES (AUTO) 0.2 10^3/uL (0.5-4.7); ABSOLUTE NEUT (AUTO) 2.3 10^3/uL (1.7-8.2); BASOPHILS % (AUTO) 0.1 % (0-2); EOSINOPHILS % (AUTO) 0.3 % (0-6); HEMATOCRIT 22.1 % (37.9-51.0); LYMPHOCYTES % (AUTO) 8.1 % (13-45); MEAN CORPUSCULAR HEMOGLOBIN 29.5 pg (27.0-33.4); MEAN CORPUSCULAR HGB CONC 33.7 g/dL (32.0-36.0); MEAN CORPUSCULAR VOLUME 88 fl (80-97); MONOCYTES % (AUTO) 0.7 % (3-13); RED BLOOD COUNT 2.53 10^6/uL (4.35-5.55); SEGMENTED NEUTROPHILS % (AUTO) 90.8 % (42-78); TOTAL CELLS COUNTED % (AUTO) 100 %; WHITE BLOOD COUNT 2.6 10^3/uL (4.0-10.5)
[2018-05-27 19:30] LABS: HEMOGLOBIN 7.5 g/dL (13.5-17.0)
[2018-05-27 19:31] LABS: PLATELET COUNT 32 10^3/uL (150-450)
[2018-05-27 19:35] LABS: ALANINE AMINOTRANSFERASE 53 U/L (21-72); ALKALINE PHOSPHATASE 142 U/L (38-126); ANION GAP 6 (5-19); ASPARTATE AMINO TRANSFERASE 50 U/L (17-59); BILIRUBIN,DIRECT 0.5 mg/dL (0.0-0.4); BILIRUBIN,TOTAL 0.9 mg/dL (0.2-1.3); BLOOD UREA NITROGEN 17 mg/dL (7-20); CALCIUM 8.1 mg/dL (8.4-10.2); CARBON DIOXIDE 25 mmol/L (22-30); CHLORIDE 100 mmol/L (98-107); GLUCOSE 155 mg/dL (75-110); POTASSIUM 4.8 mmol/L (3.6-5.0); SODIUM 131.4 mmol/L (137-145); TOTAL PROTEIN 5.4 g/dL (6.3-8.2)
[2018-05-27] MEDS: TENOFOVIR DISOPROXIL FUMARATE 300 MG PO SCH (21:51)
[2018-05-27] MEDS: TRIUMEQ PO SCH (21:52)
[2018-05-28] MEDS: NORMAL SALINE 1000 ML 1,000 ML IV PRN (02:14)
[2018-05-28] MEDS: IMIPENEM/CILASTATIN SODIUM 500 MG in NORMAL SALINE 100 ML IV SCH ×3 (02:21→15:15)
[2018-05-28] MEDS: VANCOMYCIN HCL 1,250 MG in DEXTROSE 5%-WATER 250 ML IV SCH ×2 (06:41→15:15)
[2018-05-28 07:31] LABS: ALANINE AMINOTRANSFERASE 46 U/L (21-72); ALBUMIN 2.9 g/dL (3.5-5.0); ALKALINE PHOSPHATASE 108 U/L (38-126); ASPARTATE AMINO TRANSFERASE 34 U/L (17-59); BILIRUBIN,DIRECT 0.3 mg/dL (0.0-0.4); BILIRUBIN,TOTAL 1.1 mg/dL (0.2-1.3); BLOOD UREA NITROGEN 15 mg/dL (7-20); CALCIUM 8.3 mg/dL (8.4-10.2); GLUCOSE 93 mg/dL (75-110); POTASSIUM 4.3 mmol/L (3.6-5.0); TOTAL PROTEIN 5.5 g/dL (6.3-8.2)
[2018-05-28 07:36] LABS: VANCOMYCIN,TROUGH 14.3 ug/mL (5.0-20.0)
[2018-05-28 07:37] LABS: CARBON DIOXIDE 31 mmol/L (22-30); CHLORIDE 103 mmol/L (98-107); SODIUM 136.4 mmol/L (137-145)
[2018-05-28 07:40] LABS: ANION GAP 2 (5-19)
[2018-05-28 08:09] LABS: HEMATOCRIT 19.7 % (37.9-51.0); MEAN CORPUSCULAR HEMOGLOBIN 29.8 pg (27.0-33.4); MEAN CORPUSCULAR HGB CONC 34.1 g/dL (32.0-36.0); MEAN CORPUSCULAR VOLUME 87 fl (80-97); RED BLOOD COUNT 2.25 10^6/uL (4.35-5.55); RED CELL DISTRIBUTION WIDTH 16.7 % (11.5-14.0)
[2018-05-28 08:38] LABS: HEMOGLOBIN 6.7 g/dL (13.5-17.0); PLATELET COUNT 30 10^3/uL (150-450); WHITE BLOOD COUNT 1.7 10^3/uL (4.0-10.5)
[2018-05-28 08:39] LABS: ABSOLUTE LYMPHOCYTES# (MANUAL) 0.2 10^3/uL (0.5-4.7); ABSOLUTE NEUTROPHILS# (MANUAL) 1.4 10^3/uL (1.7-8.2); BASOPHILS % (MANUAL) 0 % (0-2); EOSINOPHILS % (MANUAL) 4 % (0-6); LYMPHOCYTES % (MANUAL) 12 % (13-45); MONOCYTES % (MANUAL) 0 % (3-13); SEGMENTED NEUTROPHILS % (MAN) 84 % (42-78); TOTAL CELLS COUNTED 50
[2018-05-28 08:42] LABS: ANISOCYTOSIS 1+; OVALOCYTES SLIGHT; PLATELET COMMENT DECREASED; POIKILOCYTOSIS SLIGHT; TEAR DROP CELLS SLIGHT; TOXIC GRANULATION SLIGHT; TOXIC VACUOLATION PRESENT
[2018-05-28] MEDS: DRONABINOL 2.5 MG CAPSULE PO SCH (08:59)
[2018-05-28] MEDS: ACYCLOVIR 200 MG CAPSULE PO SCH (09:15)
[2018-05-28] MEDS: ALLOPURINOL 300 MG TABLET PO SCH (09:15)
[2018-05-28] MEDS ORDERED: EPOETIN ALFA INJ 40000 UNIT/1 ML (ONCOLOGY) SUBCUT ONE (13:00)
--- NOTE | 2018-05-28 14:24 | PDOC PROGRESS REPORT ---
Subjective Progress Note for:: 05/28/18 Subjective:: Patient seen by the bedside he wants to go home unfortunately he has worsening pancytopenia the hemoglobin is 6 today white blood cell is 1000, he was given Procrit for the low red blood cell count I am not sure of the safety of giving Neupogen in a patient with lymphoma, the Neupogen could have a stimulating effect on the lymphoma Reason For Visit: FEVER,ABDOMINAL PAIN, TACHYCARDIA Physical Exam Vital Signs: Temp Pulse Resp BP Pulse Ox 97.9 F 113 H 18 110/67 100 05/28/18 08:04 05/28/18 08:04 05/28/18 08:04 05/28/18 08:04 05/28/18 08:04 Intake & Output 05/27/18 05/28/18 05/29/18 06:59 06:59 06:59 Intake Total 4091 2548 350 Output Total 3244 3820 Balance 847 -1272 350 Weight 90.5 kg 88.2 kg General appearance: PRESENT: no acute distress Eye exam: PRESENT: PERRLA Respiratory exam: PRESENT: clear to auscultation kulwant Cardiovascular exam: PRESENT: +S1, +S2 GI/Abdominal exam: PRESENT: soft Neurological exam: PRESENT: alert Results Laboratory Results: 05/28/18 07:35 05/28/18 06:35 05/27/18 05/27/18 05/28/18 19:12 19:12 06:35 WBC 2.6 L RBC 2.53 L Hgb 7.5 L Hct 22.1 L MCV 88 MCH 29.5 MCHC 33.7 RDW 17.0 H Plt Count 32 L Seg Neutrophils % 90.8 H Lymphocytes % 8.1 L Monocytes % 0.7 L Eosinophils % 0.3 Basophils % 0.1 Absolute Neutrophils 2.3 Absolute Lymphocytes 0.2 L Absolute Monocytes 0.0 L Absolute Eosinophils 0.0 Absolute Basophils 0.0 Sodium 131.4 L 136.4 L Potassium 4.8 4.3 Chloride 100 103 Carbon Dioxide 25 31 H Anion Gap 6 2 L BUN 17 15 Creatinine 0.51 L 0.53 Est GFR ( Amer) > 60 > 60 Est GFR (Non-Af Amer) > 60 > 60 Glucose 155 H 93 Calcium 8.1 L 8.3 L Total Bilirubin 0.9 1.1 AST 50 34 ALT 53 46 Alkaline Phosphatase 142 H 108 Total Protein 5.4 L 5.5 L Albumin 3.0 L 2.9 L 05/28/18 07:35 WBC 1.7 L RBC 2.25 L Hgb 6.7 L Hct 19.7 L MCV 87 MCH 29.8 MCHC 34.1 RDW 16.7 H Plt Count 30 L* Seg Neutrophils % Not Reportable Lymphocytes % Not Reportable Monocytes % Not Reportable Eosinophils % Not Reportable Basophils % Not Reportable Absolute Neutrophils Not Reportable Absolute Lymphocytes Not Reportable Absolute Monocytes Not Reportable Absolute Eosinophils Not Reportable Absolute Basophils Not Reportable Sodium Potassium Chloride Carbon Dioxide Anion Gap BUN Creatinine Est GFR ( Amer) Est GFR (Non-Af Amer) Glucose Calcium Total Bilirubin AST ALT Alkaline Phosphatase Total Protein Albumin 05/22/18 15:48 Blood Blood Culture - Final NO GROWTH IN 5 DAYS 05/22/18 15:30 Blood Blood Culture - Final NO GROWTH IN 5 DAYS Impressions: MUGA 05/22/18 00:00 IMPRESSION: NORMAL CARDIAC MUGA STUDY. NORMAL LEFT VENTRICULAR FUNCTION WITH VALUES ABOVE. Chest X-Ray 05/22/18 13:33 IMPRESSION: NO SIGNIFICANT RADIOGRAPHIC FINDING IN THE CHEST. Assessment & Plan - Diagnosis (1) Fever of unknown origin with HIV infection Is this a current diagnosis for this admission?: Yes (2) Constipation Qualifiers: Constipation type: unspecified constipation type Qualified Code(s): K59.00 - Constipation, unspecified Is this a current diagnosis for this admission?: Yes (3) Diffuse large B cell lymphoma Qualifiers: Lymphoma site: unspecified region Qualified Code(s): C83.30 - Diffuse large B-cell lymphoma, unspecified site Is this a current diagnosis for this admission?: Yes (4) Pancytopenia Is this a current diagnosis for this admission?: Yes Plan: give Procrit (5) HIV (human immunodeficiency virus infection) Is this a current diagnosis for this admission?: Yes
[2018-05-28 15:08] VITALS: BP 100/59
--- NOTE | 2018-06-01 08:23 | PDOC DISCHARGE SUMMARY ---
General - Admit/Disc Date/PCP Admission Date/Primary Care Provider: 05/22/18 12:20 MCKENZIE GRACIA MD Discharge Date: 05/28/18 - Discharge Diagnosis (1) Febrile neutropenia Is this a current diagnosis for this admission?: Yes (2) Fever of unknown origin with HIV infection Is this a current diagnosis for this admission?: Yes (3) Constipation Is this a current diagnosis for this admission?: Yes (4) Diffuse large B cell lymphoma Is this a current diagnosis for this admission?: Yes (5) Pancytopenia Is this a current diagnosis for this admission?: Yes (6) HIV (human immunodeficiency virus infection) Is this a current diagnosis for this admission?: Yes - Additional Information Resuscitation Status: Full Code Home Medications: Abacavir/Dolutegravir/Lamivudi [Triumeq 600-50-300 mg Tablet] 1 tab PO DAILY 05/22/18 Allopurinol [Zyloprim 300 mg Tablet] 300 mg PO DAILY 05/22/18 Famciclovir [Famvir] 500 mg PO BID 05/22/18 Omeprazole 20 mg PO BID 05/22/18 Tenofovir Disoproxil Fumarate [Viread 300 mg Tablet] 300 mg PO DAILY 05/22/18 History of Present Illness History of Present Illness: LUC VICENTE is a 57 year old male,Patient was admitted on 05/22/[address] Phillips, when he presented with abdominal pain, fever with temperature 101.2 in the setting of HIV and diffuse B-cell lymphoma on active chemotherapy. There is also associated pancytopenia Hospital Course Hospital Course: Patient was treated with IV antibiotic empirically, vancomycin and Primaxin. There was no source of infection identified but because he has fever in the setting of pancytopenia, after chemotherapy for diffuse B-cell lymphoma, the blood count continues to drop, he was given Procrit this morning because of the severe anemia but I felt it was an appropriate to give Neupogen for this patient with underlying lymphoma, nipple is a growth factor for white blood cell, there is a small likelihood that it may enhance cancer growth especially lymphoma. Patient is not ready yet for discharge, today is patient is not willing to stay any longer, I explained to him that if he leaves the hospital he will be leaving again medical advice because he is still febrile with significant pancytopenia but he opted to leave AGAINST MEDICAL ADVICE Physical Exam Vital Signs: Temp Pulse Resp BP Pulse Ox 97.8 F 129 H 18 100/59 L 100 05/28/18 11:28 05/28/18 14:00 05/28/18 11:28 05/28/18 11:28 05/28/18 11:28 General appearance: PRESENT: no acute distress Eye exam: PRESENT: PERRLA Respiratory exam: PRESENT: clear to auscultation kulwant Cardiovascular exam: PRESENT: +S1, +S2 Results Laboratory Results: 05/28/18 07:35 05/28/18 06:35 Impressions: MUGA 05/22/18 00:00 IMPRESSION: NORMAL CARDIAC MUGA STUDY. NORMAL LEFT VENTRICULAR FUNCTION WITH VALUES ABOVE. Chest X-Ray 05/22/18 13:33 IMPRESSION: NO SIGNIFICANT RADIOGRAPHIC FINDING IN THE CHEST. Qualifiers - * PATIENT BEING DISCHARGED WITH ANY OF THE FOLLOWING DIAGNOSIS: No Plan Discharge Plan: Patient left AGAINST MEDICAL ADVICE
== END 2018-05-28 16:08 | disposition left against medical advice (07) | DRG 977 ==
LOC: 5 12:20 → UNDOADMIN 12:20 → 3W 18:05 → 5 18:05
PROVIDERS: ADMIT Internal Medicine Geriatric Medicine; ATTEND Internal Medicine Geriatric Medicine
PROC: 30233N1 Transfusion of Nonautologous Red Blood Cells into Peripheral Vein, Percutaneous Approach (ICD-10-PCS; principal; 2018-05-23)
DX: D70.9 Neutropenia, unspecified (principal); B20 Human immunodeficiency virus [HIV] disease; C83.30 Diffuse large B-cell lymphoma, unspecified site; R50.81 Fever presenting with conditions classified elsewhere; K59.00 Constipation, unspecified; F32.9 Major depressive disorder, single episode, unspecified; A60.9 Anogenital herpesviral infection, unspecified; D64.81 Anemia due to antineoplastic chemotherapy; Z92.21 Personal history of antineoplastic chemotherapy; Z79.899 Other long term (current) drug therapy; Z79.52 Long term (current) use of systemic steroids
CPT/HCPCS: 36415; 36430; 71045; 78472; 80053; 80202; 81001; 82570; 84156; 85025; 86850; 86900; 86901; 86920; 87040; 87086; 93005; 93010; 96367; 96409; 96411; 96413; A9270-GY; A9560; J0743; J0885; J1100; J1160; J1453; J1642; J2405; J3370; J3490; J7030; J7050; J7060; J7512; J9000; J9070; J9370; P9016; Q9969

== ENCOUNTER 2018-05-30 10:46 | Day surgery (SDC) | payer MEDICARE, OTHER ==
[2018-05-30 13:35] LABS: HEMATOCRIT 19.9 % (37.9-51.0); MEAN CORPUSCULAR HEMOGLOBIN 29.5 pg (27.0-33.4); MEAN CORPUSCULAR HGB CONC 33.9 g/dL (32.0-36.0); MEAN CORPUSCULAR VOLUME 87 fl (80-97); RED BLOOD COUNT 2.29 10^6/uL (4.35-5.55); RED CELL DISTRIBUTION WIDTH 16.5 % (11.5-14.0)
[2018-05-30 13:44] LABS: INTERNATIONAL RATION (INR) 1.05; PROTHROMBIN TIME 14.2 SEC (11.4-15.4)
[2018-05-30 13:45] LABS: PARTIAL THROMBOPLASTIN TIME 48.8 SEC (23.5-35.8)
[2018-05-30 13:53] LABS: HEMOGLOBIN 6.8 g/dL (13.5-17.0)
[2018-05-30 13:54] LABS: WHITE BLOOD COUNT 1.8 10^3/uL (4.0-10.5)
[2018-05-30 13:55] LABS: PLATELET COUNT 30 10^3/uL (150-450)
[2018-05-30 13:57] LABS: BLOOD UREA NITROGEN 11 mg/dL (7-20)
[2018-05-30] MEDS ORDERED: MIDAZOLAM 2 MG/2 ML INJ ONE (14:15)
[2018-05-30] MEDS ORDERED: FENTANYL CITRATE INJ/PF 100 MCG/2 ML AMPUL ONE (14:16)
[2018-05-30] MEDS ORDERED: LIDOCAINE 1% INJ-PF (10 MG/ML) 30 ML SDV ONE (14:16)
--- NOTE | 2018-05-30 15:15 | RADIOLOGY REPORT (SQ) ---
EXAM DESCRIPTION: CT BIOPSY BONE MARROW, NEEDLE; CT NEEDLE PLACEMENT COMPLETED DATE/TIME: 05/30/2018 3:05 pm REASON FOR STUDY: DIFFUSE LARGE B CELL LYMPHOMA C83.33 DIFFUSE LARGE B-CELL LYMPHOMA, INTRA-ABDOMIN AL LYMPH Z79.01 [facility] (CURRENT) USE OF ANTICOAGULANTS COMPARISON: None. TECHNIQUE: CT guided biopsy of the right iliac crest bone marrow performed with conscious sedation. CT Fluoroscopy Time: [address] scanners at this facility use dose modulation, iterative reconstruction, and/or weight based d osing when appropriate to reduce radiation dose to as low as reasonably achievable (ALARA). [facility]: Dose Right [facility]: CareDose [facility]: Dose Right [facility]: Teradose 4D [facility]: [email or web address] RADIATION DOSE: CT Rad equipment meets quality standard of care and radiation dose reduction techniq ues were employed. CTDIvol: 4.0 - 13.4 mGy. DLP: 249 mGy-cm.mGy. FINDINGS: After obtaining informed consent and explaining the risks and benefits of conscious sedati on,the patient agreed to the procedure. Prior to the procedure, a time out was performed to verify th e patient's identity and planned procedure. IV conscious sedation was administered and physician direction by the registered nurse using 0 millig dada of Versed and 50 micrograms of fentanyl. Physiologic monitoring was provided before, during, and after sedation. The total sedation time was 20 minutes. Documentation face to face time, the performing proceduralist, spent monitoring the patient: [address] scanning was performed to localize the percutaneous site for the biopsy approach. After sterile skin prep and local lidocaine for skin and deep tissue anesthesia, a coaxial biopsy nee dle was used to obtain a bone marrow aspirate, and a bone marrow core of tissue. The biopsy tissue wa s received by [facility] lab to be sent out for evaluation. There were no immediate complications. Pathology is pending at the time of dictation. IMPRESSION: CT GUIDED ASPIRATE AND CORE BIOPSY OF THE RIGHT POSTERIOR ILIAC CREST BONE MARROW PERFOR MED WITHOUT IMMEDIATE COMPLICATION. PATHOLOGY PENDING. IV CONSCIOUS SEDATION WITHOUT COMPLICATION. COMMENT: Quality ID 145: Final reports for procedures using fluoroscopy that document radiation exp osure indices, or exposure time and number of fluorographic images (if radiation exposure indices are not available) Patient medication list reviewed: Yes- Quality ID# [id number]:Eligible professional attests to documenting i n the medical record they obtained, updated, or reviewed the patient's current medications.New. TECHNICAL DOCUMENTATION: JOB ID: [id number] Quality ID# 436: Final reports with documentation of one or more dose reduction techniques (e.g., Aut omated exposure control, adjustment of the mA and/or kV according to patient size, use of iterative r econstruction technique) 2010 [employer]- All Rights Reserved Reading location - IP/workstation name: [facility]
--- NOTE | 2018-05-30 15:15 | RADIOLOGY REPORT (SQ) ---
EXAM DESCRIPTION: CT BIOPSY BONE MARROW, NEEDLE; CT NEEDLE PLACEMENT COMPLETED DATE/TIME: 05/30/2018 3:05 pm REASON FOR STUDY: DIFFUSE LARGE B CELL LYMPHOMA C83.33 DIFFUSE LARGE B-CELL LYMPHOMA, INTRA-ABDOMIN AL LYMPH Z79.01 [facility] (CURRENT) USE OF ANTICOAGULANTS COMPARISON: None. TECHNIQUE: CT guided biopsy of the right iliac crest bone marrow performed with conscious sedation. CT Fluoroscopy Time: [address] scanners at this facility use dose modulation, iterative reconstruction, and/or weight based d osing when appropriate to reduce radiation dose to as low as reasonably achievable (ALARA). [facility]: Dose Right [facility]: CareDose [facility]: Dose Right [facility]: Teradose 4D [facility]: [employer] RADIATION DOSE: CT Rad equipment meets quality standard of care and radiation dose reduction techniq ues were employed. CTDIvol: 4.0 - 13.4 mGy. DLP: 249 mGy-cm.mGy. FINDINGS: After obtaining informed consent and explaining the risks and benefits of conscious sedati on,the patient agreed to the procedure. Prior to the procedure, a time out was performed to verify th e patient's identity and planned procedure. IV conscious sedation was administered and physician direction by the registered nurse using 0 millig dada of Versed and 50 micrograms of fentanyl. Physiologic monitoring was provided before, during, and after sedation. The total sedation time was 20 minutes. Documentation face to face time, the performing proceduralist, spent monitoring the patient: [address] scanning was performed to localize the percutaneous site for the biopsy approach. After sterile skin prep and local lidocaine for skin and deep tissue anesthesia, a coaxial biopsy nee dle was used to obtain a bone marrow aspirate, and a bone marrow core of tissue. The biopsy tissue wa s received by [facility] lab to be sent out for evaluation. There were no immediate complications. Pathology is pending at the time of dictation. IMPRESSION: CT GUIDED ASPIRATE AND CORE BIOPSY OF THE RIGHT POSTERIOR ILIAC CREST BONE MARROW PERFOR MED WITHOUT IMMEDIATE COMPLICATION. PATHOLOGY PENDING. IV CONSCIOUS SEDATION WITHOUT COMPLICATION. COMMENT: Quality ID 145: Final reports for procedures using fluoroscopy that document radiation exp osure indices, or exposure time and number of fluorographic images (if radiation exposure indices are not available) Patient medication list reviewed: Yes- Quality ID# [id number]:Eligible professional attests to documenting i n the medical record they obtained, updated, or reviewed the patient's current medications.New. TECHNICAL DOCUMENTATION: JOB ID: [id number] Quality ID# 436: Final reports with documentation of one or more dose reduction techniques (e.g., Aut omated exposure control, adjustment of the mA and/or kV according to patient size, use of iterative r econstruction technique) 2010 [employer]- All Rights Reserved Reading location - IP/workstation name: [facility]
[2018-05-30 17:06] VITALS: BP 101/56
== END 2018-05-30 17:00 | disposition home or self-care (01) ==
LOC: RAD 10:46
PROVIDERS: ATTEND Internal Medicine Medical Oncology
DX: C83.33 Diffuse large B-cell lymphoma, intra-abdominal lymph nodes (principal); Z21 Asymptomatic human immunodeficiency virus [HIV] infection status; R16.1 Splenomegaly, not elsewhere classified; I25.10 Atherosclerotic heart disease of native coronary artery without angina pectoris; Z79.01 Long term (current) use of anticoagulants
CPT/HCPCS: 36415; 84520; 82565; 85027; 85610; 85730; 38221; 77012; J3010; J3490; J2250

== ENCOUNTER 2018-06-03 13:12 | Outpatient (CLI) | payer MEDICARE, OTHER ==
[~2018-06-03 13:12] MED LIST: ACETAMINOPHEN 325 MG TABLET PO PRN; DIPHENHYDRAMINE HCL 25 MG CAPSULE PO PRN; FUROSEMIDE INJ/PF 20 MG/2 ML SDV IV PRN
[2018-06-03 14:09] LABS: HEMATOCRIT 22.6 % (37.9-51.0); MEAN CORPUSCULAR HEMOGLOBIN 29.6 pg (27.0-33.4); MEAN CORPUSCULAR HGB CONC 34.1 g/dL (32.0-36.0); MEAN CORPUSCULAR VOLUME 87 fl (80-97); PLATELET COUNT 120 10^3/uL (150-450); RED BLOOD COUNT 2.61 10^6/uL (4.35-5.55); RED CELL DISTRIBUTION WIDTH 16.2 % (11.5-14.0)
[2018-06-03] MEDS ORDERED: NORMAL SALINE 250 ML IV PRN (14:30)
[2018-06-03 14:52] LABS: HEMOGLOBIN 7.7 g/dL (13.5-17.0); WHITE BLOOD COUNT 1.4 10^3/uL (4.0-10.5)
[2018-06-03 21:36] VITALS: BP 112/74
[2018-06-03 21:47] LABS: HEMATOCRIT 28.7 % (37.9-51.0); MEAN CORPUSCULAR HEMOGLOBIN 29.6 pg (27.0-33.4); MEAN CORPUSCULAR HGB CONC 34.8 g/dL (32.0-36.0); MEAN CORPUSCULAR VOLUME 85 fl (80-97); PLATELET COUNT 118 10^3/uL (150-450); RED BLOOD COUNT 3.37 10^6/uL (4.35-5.55); RED CELL DISTRIBUTION WIDTH 16.2 % (11.5-14.0)
[2018-06-03 21:53] LABS: WHITE BLOOD COUNT 1.4 10^3/uL (4.0-10.5)
[2018-06-03 22:15] LABS: ABSOLUTE LYMPHOCYTES# (MANUAL) 0.7 10^3/uL (0.5-4.7); ABSOLUTE MONOCYTES # (MANUAL) 0.1 10^3/uL (0.1-1.4); ABSOLUTE NEUTROPHILS# (MANUAL) 0.4 10^3/uL (1.7-8.2); BASOPHILS % (MANUAL) 2 % (0-2); EOSINOPHILS % (MANUAL) 10 % (0-6); LYMPHOCYTES % (MANUAL) 48 % (13-45); MONOCYTES % (MANUAL) 10 % (3-13); SEGMENTED NEUTROPHILS % (MAN) 30 % (42-78); TOTAL CELLS COUNTED 50
[2018-06-03 22:16] LABS: OVALOCYTES 1+; PLATELET COMMENT DECREASED; POIKILOCYTOSIS 2+; POLYCHROMASIA SLIGHT; TEAR DROP CELLS 1+
== END 2018-06-03 21:59 | disposition home or self-care (01) ==
LOC: II 13:12 → 2S 13:21 → II 21:59
PROVIDERS: ATTEND Internal Medicine Medical Oncology
PROC: 30243N1 Transfusion of Nonautologous Red Blood Cells into Central Vein, Percutaneous Approach (ICD-10-PCS; principal; 2018-06-03)
DX: D64.9 Anemia, unspecified (principal); C85.90 Non-Hodgkin lymphoma, unspecified, unspecified site
CPT/HCPCS: 86900; 86901; 36415; 36430; 86850; 85025; 86920; P9016; A9270 ×2; J7050